=== PATIENT | male | born 1955 | race Caucasian/White ===

== ENCOUNTER 2019-02-24 07:54 | Outpatient (CLI) | payer MEDICARE, OTHER, SELFPAY ==
--- NOTE | 2019-02-24 08:06 | NM_ITS ---
WS: [id number] NUCLEAR MEDICINE HIDA SCAN WITH GALLBLADDER EJECTION FRACTION HISTORY: RUQ PAIN COMPARISON: 08/21/2015 and 02/17/2019 TECHNIQUE: The patient was intravenously injected with 8.1 mCi of TC99m Mebrofenin. Immediate imaging over the right upper quadrant was followed by 5 minute image and additional images for a total of 60 minutes. Normal uptake of radiotracer throughout the liver. Activity identified in the gallbladder at 10 minutes and well distended by 60 minutes. Activity in the proximal small bowel was seen by 60 minutes. Good washout of the radiotracer from the liver by 60 minutes. The patient then drank 8 ounces of Ensure Plus. Ejection fraction at 60 minutes was 90%. Normal GB ej ection fraction is 35-75%. Post fatty meal symptoms: None. NM/NM hepatobiliary w phar* [id number] IMPRESSION: 1. Normal HIDA scan. 2. Normal gallbladder ejection fraction.
== END 2019-02-24 07:55 | disposition home or self-care (01) ==
LOC: RAD 08:01
PROVIDERS: Family Provider Family Medicine; PCP Family Medicine; Visit Provider Family Medicine
DX: R10.11 Right upper quadrant pain (principal)
CPT/HCPCS: 78227; A9537

== ENCOUNTER → 2019-02-28 09:34 | Outpatient (BNVA) | payer MEDICARE, OTHER, SELFPAY | PROVIDERS: Family Provider Family Medicine; PCP Family Medicine; Visit Provider Internal Medicine Rheumatology | DX: L40.59 Other psoriatic arthropathy (principal); Z79.52 Long term (current) use of systemic steroids; I10 Essential (primary) hypertension; F17.220 Nicotine dependence, chewing tobacco, uncomplicated | CPT/HCPCS: 99214 ==

== ENCOUNTER → 2019-05-08 08:39 | Outpatient (BNVA) | payer MEDICARE, OTHER, SELFPAY | PROVIDERS: Family Provider Family Medicine; PCP Family Medicine; Visit Provider Family Medicine | DX: E78.5 Hyperlipidemia, unspecified (principal); E11.9 Type 2 diabetes mellitus without complications; I10 Essential (primary) hypertension; F51.04 Psychophysiologic insomnia | CPT/HCPCS: 80053; 80061; 82044; 83036; 83721; 85025 ==

== ENCOUNTER → 2020-02-07 08:23 | Outpatient (BNVA) | payer MEDICARE, OTHER, SELFPAY | PROVIDERS: Family Provider Family Medicine; PCP Family Medicine; Visit Provider Family Medicine | DX: I10 Essential (primary) hypertension (principal); R73.03 Prediabetes; E78.5 Hyperlipidemia, unspecified | CPT/HCPCS: 80053; 80061; 83036; 85025 ==

== ENCOUNTER 2020-04-26 23:56 | Inpatient (IN) | payer MEDICARE, OTHER, SELFPAY ==
[2020-04-27] VITALS (22 sets, daily range): BP systolic 94–140; BP diastolic 62–89; PULSE 62–107; RESP 12–24; TEMP 36.4–38.1; O2SAT 82–97; BMI 35.9; BMI 25.0
--- NOTE | 2020-04-27 00:40 | ECG_ITS ---
[facility] Test Date: 2020-04-27 Pat Name: Federico Menjivar Department: Room: Gender: Male Range Aide: : 1955 Requested By: Hugo Marcos Order Number: [id number] Reading MD: GREGORY NOLEN Measurements Intervals [place] Rate: 90 P: 39 [place]: 176 QRS: -60 QRSD: 102 T: 81 QT: 350 QTc: 429 Interpretive Statements SINUS RHYTHM LEFT ANTERIOR FASCICULAR BLOCK [QRS AXIS <= -45, QR IN I, RS IN II] SEPTAL MYOCARDIAL INFARCTION , PROBABLY OLD [40+ ms Q WAVE IN V1/V2] POSSIBLE LATERAL MYOCARDIAL INFARCTION , OF INDETERMINATE AGE [30 ms Q WAVE IN I/aVL/V5/V6] No previous ECG available for comparison Electronically Signed On 04-27-2020 18:45:59 GRAB HOOKER by GREGORY NOLEN [id number]
--- NOTE | 2020-04-27 00:46 | ED_ITS ---
HPI - COVID General: Chief Complaint: COVID symptoms Stated Complaint: covid symptoms Time Seen by Provider: 04/27/20 00:04 Triage information: Has fever, cough or shortness of breath . No known COVID + exposure last 14 days History of Present Illness: HPI Narrative: 64-year-old male with a history of diabetes, interstitial lung disease, and psoriatic arthritis. He presents with cough and fever since Wednesday. Fever log to 103 at home. It is 100.5 currently. He has been short of breath he says his sputum is white. He has a headache with his cough. He has some generalized aches as well. He is currently not using oxygen. MD complaint: has COVID symptoms Prior covid testing: no COVID 19 common symptoms: positive fever(s), chills, cough, productive cough, dyspnea, headache(s) and nasal congestion; negative throat pain, vomiting or diarrhea COVID 19 other sytmptoms: positive chest pressure and chest pain; negative requiring oxygen or requiring more oxygen Onset (ago): day(s) Severity: moderate Pertinent comorbid conditions: diabetes, COPD/respiratory disease and obesity Treatment prior to arrival: acetaminophen COVID Results: SARS-CoV-2 Antigen (Rapid) Positive (Negative) H 04/27/20 00:37 04/27/20 Review of Systems Const: Reports: fever(s) and chills Eyes: Denies: change in vision ENMT: Reports: nasal congestion; Denies: throat pain or odynophagia Card: Reports: chest pain and dyspnea on exertion; Denies: palpitations, irregular heart rhythm, swelling of feet/ankles or syncope Resp: Reports: dyspnea and productive cough GI: Denies: vomiting or diarrhea Neuro: Reports: headache(s); Denies: numbness in extremities or weakness in extremities PFSH ED PFSH: Medical History Chronic insomnia Dyslipidemia Essential hypertension Fibromyalgia GERD (gastroesophageal reflux disease) Idiopathic small fiber peripheral neuropathy Interstitial lung disease due to connective tissue disease Migraine headache Psoriasis Psoriatic arthritis TIA (transient ischemic attack) Type 2 diabetes mellitus, without long-term current use of insulin Surgical History History of surgery on arm Family History Other CAD (coronary artery disease) Hyperlipidemia Hypertension Lung disease Social History Smoking and tobacco status: smoker, details unknown smokeless tobacco Smokeless tobacco user: chewing tobacco Alcohol intake: never History of recent travel: No Physical Exam Const: GENERAL APPEARANCE: well developed and ill appearing ORIENTATION /CONSCIOUSNESS: Yes oriented to person, Yes oriented to place and Yes oriented to time HENMT: COMMON NORMALS: normocephalic, external ears normal and Normal external nose present HEAD & SCALP: normocephalic FACE & SINUS: normal facial exam NOSE: Normal external nose present and No nasal discharge present EXTERNAL EAR: Yes external ears normal Eye: COMMON NORMALS: Equal, round and reactive pupils present, EOMs intact bilaterally and conjunctivae normal EYELID: eyelids normal CONJUNCTIVA: Yes conjunctivae normal PUPIL: Yes Equal, round and reactive pupils present Neck/C-Spine: GENERAL: No tracheal deviation CERVICAL SPINE: Yes normal cervical lordosis and No Cervical spine tenderness Chest: COMMONS NORMALS: normal inspection of the chest CHEST: No tenderness Resp: COMMON NORMALS: negative for clear to auscultation bilaterally EFFORT & INSPECTION: Yes tachypneic, No respiratory distress, No retractions, Yes uses accessory muscles and No tracheal deviation AUSCULTATION: not clear to auscultation bilaterally, no rhonchi, wheezes and lung sounds not diminished Cardio: COMMON NORMALS: regular rhythm RATE: tachycardic RHYTHM: regular rhythm HEART SOUNDS: no murmurs PERIPHERAL PULSES: radial pulses present GI: INSPECTION: No abdominal distension AUSCULTATION: No Hyperactive bowel sounds present and No Hypoactive bowel sounds present PALPATION: No Guarding due to palpation present (GI) and No Rigid due to palpation PERCUSSION: no dullness to percussion and no tympanic to percussion Neuro: SENSORIUM/ORIENTATION: Yes oriented to person, Yes oriented to place and Yes oriented to time Psych: COMMON NORMALS: mental status grossly normal Skin: COMMON NORMALS: no rashes or lesions noted GENERAL SKIN EXAM: no rashes or lesions noted Course Vital Signs: Vital signs: Vital Signs Temperature 97.8 F 04/27/20 05:08 Pulse Rate 62 04/27/20 05:08 Respiratory Rate 18 04/27/20 05:08 Blood Pressure 118/75 04/27/20 05:08 Pulse Oximetry 93 04/27/20 06:25 MDM - COVID MDM Narrative: Medical decision making narrative: 64-year-old male with increasing shortness of breath at home. He has a history of interstitial lung disease. His oxygen saturations were in the mid to high 80s on room air despite tachypnea. He feels much better on 3 L of oxygen. He is hypoxic on blood gas. He is COVID-19 positive. Chest x-ray reveals some subtle opacities. CTA reveals pneumonitis with bilateral involvement consistent with COVID-19. With hypoxic respiratory failure, his history of lung disease, he will come into the hospitalist for treatment, especially as he is oxygen dependent at this point. Lab Data: Labs: Lab Results 04/27/20 04/27/20 04/27/20 Range/Units 00:37 00:59 00:59 WBC 6.0 (4.0-10.0) 10^3/ uL RBC 5.22 (4.1-5.3) 10^6/u L Hgb 15.6 (11.7-16.6) g/dL Hct 48.2 (42.0-52.0) % MCV 92.3 (80-94) fL MCH 29.9 (28.0-34.0) pg MCHC 32.4 (30.0-36.0) g/dL RDW 14.4 (12.1-15.1) % Plt Count 184 (130-400) 10^3/c mm MPV 10.6 H (7.4-10.4) fL Neut % (Auto) 76.3 % Lymph % (Auto) 13.6 % Sierra % (Auto) 8.8 % Eos % (Auto) 0.5 % Baso % (Auto) 0.3 % Neut # (Auto) 4.61 (1.8-7.7) 10^3/u L Lymph # (Auto) 0.8 (0.8-4.8) 10^3/u L Sierra # (Auto) 0.5 (0.2-0.9) 10^3/u L Eos # (Auto) 0.0 (0.0-0.8) 10^3/u L Baso # (Auto) 0.0 (0.0-0.1) 10^3/u L Nucleated RBC % (a uto) 0 % Nucleated RBCs # 0.0 /100WBC D-Dimer 0.85 H (0-0.59) ug/mIFE U Sodium (136-145) mmol/L Potassium (3.5-5.1) mmol/L Chloride (98-107) mmol/L Carbon Dioxide (22-29) mmol/L Anion Gap (5-19) BUN (8-23) mg/dL Creatinine (0.7-1.2) mg/dL GFR Calculation (90-130) mL/min Glucose (65-115) mg/dL Calculated Osmolal ity (285-295) mOsm/k g Lactate (0.5-2.2) mmol/L Calcium (8.5-10.5) mg/dL Total Bilirubin (0.15-1.2) mg/dL AST (0-40) U/L ALT (0-41) U/L Alkaline Phosphata se (40-130) IU/L Creatine Kinase (39-308) U/L Troponin T Baselin e (0-15) ng/L Troponin T 120 Min [place] (0-15) ng/L Delta Troponin T (0-10) ABS# C-Reactive Protein (0.0-4.9) mg/L NT-Pro-B Natriuret Pep (0-125) pg/mL Total Protein (6.6-8.7) g/dL Albumin (3.5-5.2) g/dL Globulin (1.3-4.6) g/dL Procalcitonin (0-0.5) ng/mL Urine Color (Yellow) Urine Appearance (CLEAR) Urine pH (5-7) Ur Specific Gravit y (1.005-1.030) Urine Protein (Negative) Urine Glucose (UA) (Normal) Urine Ketones (Negative) Urine Blood (Negative) Urine Nitrate (Negative) Urine Bilirubin (Negative) Urine Urobilinogen (Negative) mg/dL Ur Leukocyte Di ase (Negative) Urine RBC (0-2) /hpf Urine WBC (0-5) /hpf Ur Squamous Epith Cells (0-5) /hpf Amorphous Sediment Urine Bacteria (NONE) /hpf SARS-CoV-2 Ag (Rap id) Positive H (Negative) 04/27/20 04/27/20 04/27/20 Range/Units 00:59 00:59 00:59 WBC (4.0-10.0) 10^3/ uL RBC (4.1-5.3) 10^6/u L Hgb (11.7-16.6) g/dL Hct (42.0-52.0) % MCV (80-94) fL MCH (28.0-34.0) pg MCHC (30.0-36.0) g/dL RDW (12.1-15.1) % Plt Count (130-400) 10^3/c mm MPV (7.4-10.4) fL Neut % (Auto) % Lymph % (Auto) % Sierra % (Auto) % Eos % (Auto) % Baso % (Auto) % Neut # (Auto) (1.8-7.7) 10^3/u L Lymph # (Auto) (0.8-4.8) 10^3/u L Sierra # (Auto) (0.2-0.9) 10^3/u L Eos # (Auto) (0.0-0.8) 10^3/u L Baso # (Auto) (0.0-0.1) 10^3/u L Nucleated RBC % (a uto) % Nucleated RBCs # /100WBC D-Dimer (0-0.59) ug/mIFE U Sodium 136 (136-145) mmol/L Potassium 3.5 (3.5-5.1) mmol/L Chloride 102 (98-107) mmol/L Carbon Dioxide 20 L (22-29) mmol/L Anion Gap 17.5 (5-19) BUN 20 (8-23) mg/dL Creatinine 1.5 H (0.7-1.2) mg/dL GFR Calculation 47.0 L (90-130) mL/min Glucose 138 H (65-115) mg/dL Calculated Osmolal ity 287 (285-295) mOsm/k g Lactate 2.1 (0.5-2.2) mmol/L Calcium 8.6 (8.5-10.5) mg/dL Total Bilirubin 0.2 (0.15-1.2) mg/dL AST 34 (0-40) U/L ALT 40 (0-41) U/L Alkaline Phosphata se 80 (40-130) IU/L Creatine Kinase 381 H* (39-308) U/L Troponin T Baselin e 26 H (0-15) ng/L Troponin T 120 Min [place] (0-15) ng/L Delta Troponin T (0-10) ABS# C-Reactive Protein 42.0 H (0.0-4.9) mg/L NT-Pro-B Natriuret Pep 45 (0-125) pg/mL Total Protein 7.0 (6.6-8.7) g/dL Albumin 3.6 (3.5-5.2) g/dL Globulin 3.4 (1.3-4.6) g/dL Procalcitonin 0.09 (0-0.5) ng/mL Urine Color (Yellow) Urine Appearance (CLEAR) Urine pH (5-7) Ur Specific Gravit y (1.005-1.030) Urine Protein (Negative) Urine Glucose (UA) (Normal) Urine Ketones (Negative) Urine Blood (Negative) Urine Nitrate (Negative) Urine Bilirubin (Negative) Urine Urobilinogen (Negative) mg/dL Ur Leukocyte Di ase (Negative) Urine RBC (0-2) /hpf Urine WBC (0-5) /hpf Ur Squamous Epith Cells (0-5) /hpf Amorphous Sediment Urine Bacteria (NONE) /hpf SARS-CoV-2 Ag (Rap id) (Negative) 04/27/20 04/27/20 Range/Units 01:35 03:10 WBC (4.0-10.0) 10^3/ uL RBC (4.1-5.3) 10^6/u L Hgb (11.7-16.6) g/dL Hct (42.0-52.0) % MCV (80-94) fL MCH (28.0-34.0) pg MCHC (30.0-36.0) g/dL RDW (12.1-15.1) % Plt Count (130-400) 10^3/c mm MPV (7.4-10.4) fL Neut % (Auto) % Lymph % (Auto) % Sierra % (Auto) % Eos % (Auto) % Baso % (Auto) % Neut # (Auto) (1.8-7.7) 10^3/u L Lymph # (Auto) (0.8-4.8) 10^3/u L Sierra # (Auto) (0.2-0.9) 10^3/u L Eos # (Auto) (0.0-0.8) 10^3/u L Baso # (Auto) (0.0-0.1) 10^3/u L Nucleated RBC % (a uto) % Nucleated RBCs # /100WBC D-Dimer (0-0.59) ug/mIFE U Sodium (136-145) mmol/L Potassium (3.5-5.1) mmol/L Chloride (98-107) mmol/L Carbon Dioxide (22-29) mmol/L Anion Gap (5-19) BUN (8-23) mg/dL Creatinine (0.7-1.2) mg/dL GFR Calculation (90-130) mL/min Glucose (65-115) mg/dL Calculated Osmolal ity (285-295) mOsm/k g Lactate (0.5-2.2) mmol/L Calcium (8.5-10.5) mg/dL Total Bilirubin (0.15-1.2) mg/dL AST (0-40) U/L ALT (0-41) U/L Alkaline Phosphata se (40-130) IU/L Creatine Kinase (39-308) U/L Troponin T Baselin e (0-15) ng/L Troponin T 120 Min [place] 23.96 H (0-15) ng/L Delta Troponin T -2.04 L (0-10) ABS# C-Reactive Protein (0.0-4.9) mg/L NT-Pro-B Natriuret Pep (0-125) pg/mL Total Protein (6.6-8.7) g/dL Albumin (3.5-5.2) g/dL Globulin (1.3-4.6) g/dL Procalcitonin (0-0.5) ng/mL Urine Color Yellow (Yellow) Urine Appearance Clear (CLEAR) Urine pH 5 (5-7) Ur Specific Gravit y 1.020 (1.005-1.030) Urine Protein Neg (Negative) Urine Glucose (UA) Norm (Normal) Urine Ketones Negative (Negative) Urine Blood 2+ H (Negative) Urine Nitrate Negative (Negative) Urine Bilirubin Neg (Negative) Urine Urobilinogen 1 H (Negative) mg/dL Ur Leukocyte Di ase Negative (Negative) Urine RBC 5-10 H (0-2) /hpf Urine WBC 0-4 H (0-5) /hpf Ur Squamous Epith Cells 0-4 H (0-5) /hpf Amorphous Sediment Not Reportable Urine Bacteria Trace (NONE) /hpf SARS-CoV-2 Ag (Rap id) (Negative) COVID Results: SARS-CoV-2 Antigen (Rapid) Positive (Negative) H 04/27/20 00:37 04/27/20 Discharge Plan Discharge Patient Disposition: Admitted As Inpatient Admit Provider: Felice Javier Clinical Impression: Acute hypoxemic respiratory failure, Pneumonia due to 2019 novel coronavirus Condition: Stable Coding Level of Care Code ED Tableau Developer for Chg Fwd Exam Comprehensive
[2020-04-27] MEDS: dexamethasone 4 mg/mL INJ 8 MG IVP (01:29)
[2020-04-27] MEDS: ketorolac 30 mg/mL INJ IVP (01:30)
[2020-04-27 01:33] LABS: Basophils % 0.3 %; Eosinophils % 0.5 %; Hematocrit 48.2 % (42.0-52.0); Hemoglobin 15.6 g/dL (11.7-16.6); Lymphocytes # 0.8 10^3/uL (0.8-4.8); Lymphocytes % 13.6 %; Mean Corpuscular HGB Conc 32.4 g/dL (30.0-36.0); Mean Corpuscular Hemoglobin 29.9 pg (28.0-34.0); Mean Corpuscular Volume 92.3 fL (80-94); Mean Platelet Volume 10.6 fL (7.4-10.4); Monocytes # 0.5 10^3/uL (0.2-0.9); Monocytes % 8.8 %; Neutrophils # 4.61 10^3/uL (1.8-7.7); Neutrophils % 76.3 %; Nucleated Red Blood Cells % 0 %; Platelet Count 184 10^3/cmm (130-400); Red Blood Count 5.22 10^6/uL (4.1-5.3); Red Cell Distribution Width 14.4 % (12.1-15.1)
[2020-04-27 01:50] LABS: SARS Covid-2 Antigen Positive (Negative)
[2020-04-27 01:52] LABS: D Dimer 0.85 ug/mIFEU (0-0.59)
[2020-04-27 01:54] LABS: Lactate (Lactic Acid level) 2.1 mmol/L (0.5-2.2)
[2020-04-27 01:58] LABS: Troponin(5th) Baseline 26 ng/L (0-15)
[2020-04-27 02:04] LABS: NT Pro B Type Natriuretic Pept 45 pg/mL (0-125); Procalcitonin 0.09 ng/mL (0-0.5)
[2020-04-27] MEDS: albuterol 8 gm MDI 4 PUFF INHALATION (02:07)
[2020-04-27 02:15] LABS: Alanine Aminotransferase 40 U/L (0-41); Albumin Level 3.6 g/dL (3.5-5.2); Alkaline Phosphatase 80 IU/L (40-130); Aspartate Amino Transferase 34 U/L (0-40); Blood Urea Nitrogen 20 mg/dL (8-23); Calcium 8.6 mg/dL (8.5-10.5); Carbon Dioxide 20 mmol/L (22-29); Chloride 102 mmol/L (98-107); Globulin 3.4 g/dL (1.3-4.6); Glucose 138 mg/dL (65-115); Osmolality Calculated 287 mOsm/kg (285-295); Sodium 136 mmol/L (136-145); Total Bilirubin 0.2 mg/dL (0.15-1.2)
[2020-04-27 02:16] LABS: Anion Gap 17.5 (5-19); Potassium 3.5 mmol/L (3.5-5.1)
[2020-04-27 02:17] LABS: Creatine Phosphokinase 381 U/L (39-308)
[2020-04-27 02:28] LABS: Add Urine Microscopic? YES; Bilirubin Urine Neg (Negative); Blood Urine 2+ (Negative); Glucose Urine UA Norm (Normal); Ketones Urine Negative (Negative); Leukocyte Esterase Urine Negative (Negative); Nitrate Urine Negative (Negative); Protein Urine Neg (Negative); Urine Appearance Clear (CLEAR); Urine Color Yellow (Yellow); Urobilinogen Urine 1 mg/dL (Negative); pH Urine 5 (5-7)
--- NOTE | 2020-04-27 02:36 | CTR_ITS ---
PROCEDURE INFORMATION: Exam: CT Angiography Chest With Contrast Exam date and time: 04/27/2020 3:07 AM Age: 64 years old Clinical indication: Cough and shortness of breath; Patient HX: Cough with SOB. Covid +; Additional info: Chest pain TECHNIQUE: Imaging protocol: Computed tomographic angiography of the chest with contrast. 3D rendering (Not supervised by radiologist): MIP and/or 3D reconstructed images were created by the technologist. Radiation optimization: All CT scans at this facility use at least one of these dose optimization techniques: automated exposure control; mA and/or kV adjustment per patient size (includes targeted exams where dose is matched to clinical indication); or iterative reconstruction. Contrast material: VISI 320; Contrast volume: 80 ml; Contrast route: INTRAVENOUS (IV); COMPARISON: CR XR chest 1V portable [id number] 04/27/2020 12:11 AM RADIATION DOSE METRICS: Total DLP (mGy-cm): 952.56 FINDINGS: Pulmonary arteries: Normal. No pulmonary emboli. Aorta: Unremarkable. No aortic aneurysm. No aortic dissection. Lungs: There is a background of centrilobular emphysema. Some linear opacities are present in the posterior hemithoraces, findings that may represent atelectasis or parenchymal or pleural scarring. Subtle ground-glass opacities are seen in the right lobe adjacent to the major fissure and in the left perihilar region. A patchy interstitial pneumonitis cannot be excluded. Pleural spaces: Unremarkable. No pneumothorax. No pleural effusion. Heart: Calcifications are seen within the coronary arteries. Lymph nodes: Unremarkable. No enlarged lymph nodes. Liver: There is mild hypoattenuation of the hepatic parenchyma compatible with fatty infiltration. Gallbladder and bile ducts: There are multiple mildly prominent gallstones present. There are no inflammatory changes present to suggest cholecystitis however. Bones/joints: Unremarkable. No acute fracture. Soft tissues: Unremarkable. CT/CT angio chest PE protcl [id number] IMPRESSION: 1. There is no evidence for pulmonary emboli. 2. Linear opacity seen in the posterior hemithoraces likely represents atelectasis versus parenchymal pleural scarring. 3. There are some subtle ground-glass opacity seen in the right upper lobe adjacent to the major fissure and in the left perihilar region, findings that may represent atelectasis although a patchy interstitial pneumonitis cannot be excluded. Radiation Dose CTDIVOL = (mGy): DLP = 952.56 (mGy-cm)
--- NOTE | 2020-04-27 02:40 | ECG_ITS ---
[facility] Test Date: 2020-04-27 Pat Name: Federico Menjivar Department: Room: Gender: Male Ware Server: : 1955 Requested By: Hugo Marcos Order Number: [id number] Reading MD: GREGORY NOLEN Measurements Intervals [place] Rate: 71 P: 51 MI: 188 QRS: -55 QRSD: 111 T: 77 QT: 391 QTc: 427 Interpretive Statements SINUS RHYTHM LEFT ANTERIOR FASCICULAR BLOCK [QRS AXIS <= -45, QR IN I, RS IN II] SEPTAL MYOCARDIAL INFARCTION , OF INDETERMINATE AGE [40+ ms Q WAVE IN V1/V2] PROBABLE LATERAL MYOCARDIAL INFARCTION , OF INDETERMINATE AGE [35 ms Q WAVE IN I/aVL/V5/V6] Compared to ECG 04/27/2020 01:19:24 No significant changes Electronically Signed On 04-27-2020 18:47:39 SEAL SKINNER by GREGORY NOLEN [id number]
[2020-04-27 02:54] LABS: Add Urine Culture? No; Bacteria Urine TRACE /hpf; Squamous Epithelial Cell Urine 0-4 /hpf (0-5); WBC Urine 0-4 /hpf (0-5)
[2020-04-27] MEDS: iodixanol 320 mg/mL 100mL Btl IV (03:10)
--- NOTE | 2020-04-27 03:22 | XRR_ITS ---
PROCEDURE INFORMATION: Exam: XR Chest Exam date and time: 04/27/2020 12:31 AM Age: 64 years old Clinical indication: Shortness of breath; Additional info: SOB TECHNIQUE: Imaging protocol: XR of the chest Views: 1 view. COMPARISON: CR Chest 2 views* [id number] 09/24/2016 1:26 PM FINDINGS: Lungs: There is a background centrilobular emphysema and bronchiectasis. Increased interstitial markings are seen within the mid lower hemithoraces bilaterally likely representing background of pulmonary fibrosis as well although superimposed interstitial pneumonitis cannot be entirely excluded. Pleural spaces: Unremarkable. No pleural effusion. No pneumothorax. Heart/Mediastinum: Unremarkable. No cardiomegaly. Bones/joints: Unremarkable. XR/XR chest 1V portable [id number] IMPRESSION: 1. Probable background of centrilobular emphysema and bronchiectasis. 2. Subtle increased interstitial opacities are seen in the mid lower hemithoraces likely representing mild pulmonary fibrosis although superimposed interstitial pneumonitis cannot be entirely excluded.
[2020-04-27 04:00] LABS: Troponin 5 2HR 23.96 ng/L (0-15)
[2020-04-27 04:06] LABS: Troponin 5 2HR Delta -2.04 ABS# (0-10)
--- NOTE | 2020-04-27 04:57 | P.HP_ITS ---
Providers/Chief Complaint Admitting Physician: Felice Javier Primary Care Provider: Carolina Stevenson DO Chief Complaint: covid symptoms History of Present Illness Federico Menjivar is a 64 year old male with a history of psoriatic arthritis and interstitial lung disease presented to the emergency department with a complaint of fever, progressive shortness of breath and cough. Patient tested positive for COVID-19. He stated he took his Covid showed in the first week of March. CTA thorax done in the emergency department demonstrated bilateral patchy infiltrates. Patient is requiring 3 L of oxygen to maintain SaO2 above 90. He is admitted for further management of Covid pneumonia with acute respiratory failure. Review of Systems Narrative: Except as documented, all other systems reviewed and negative. Medications/Allergies Home Medications Medication Instructions Recorded Confirmed Last Taken Type lisinopril 5 mg tablet 5 mg PO DAILY #90 tab 08/10/19 03/25/20 Unknown Rx cyclobenzaprine 10 mg tablet 10 mg PO TID #90 tab 01/01/20 03/25/20 Unknown Rx ropinirole 1 mg tablet 1 mg PO DAILY #90 tab 01/11/20 03/25/20 Unknown Rx topiramate 25 mg tablet 25 mg PO .daily at bedtime #60 tab 01/11/20 03/25/20 Unknown Rx atorvastatin 40 mg tablet 40 mg PO .at bedtime #90 tab 03/25/20 03/25/20 Unknown Rx clonazepam 1 mg tablet 1 mg PO .po q hs #90 tab 03/25/20 03/25/20 Unknown Rx diclofenac sodium 75 mg 75 mg PO .once daily #90 tab 03/25/20 03/25/20 Unknown Rx tablet,delayed release prednisone 10 mg tablet 5 mg PO DAILY tab 03/25/20 03/25/20 Unknown History tofacitinib 11 mg tablet,extended 11 mg PO DAILY 03/25/20 03/25/20 Unknown History release 24 hr sitagliptin 50 mg tablet 50 mg PO DAILY #90 tab 04/01/20 Unknown Rx Allergies Allergy/AdvReac Type Severity Reaction Status Date / Time duloxetine [From Cymbalta] Allergy itching Verified 03/25/20 15:01 tramadol [From Ultracet] Allergy rash Verified 03/25/20 15:01 PFSH Acute PFSH: Medical History Chronic insomnia Dyslipidemia Essential hypertension Fibromyalgia GERD (gastroesophageal reflux disease) Idiopathic small fiber peripheral neuropathy Interstitial lung disease due to connective tissue disease Migraine headache Psoriasis Psoriatic arthritis TIA (transient ischemic attack) Type 2 diabetes mellitus, without long-term current use of insulin Surgical History History of surgery on arm Family History Other CAD (coronary artery disease) Hyperlipidemia Hypertension Lung disease Social History Smoking and tobacco status: smoker, details unknown smokeless tobacco Smokeless tobacco user: chewing tobacco Alcohol intake: never History of recent travel: No Vitals/I&O/Wt Last Vital Signs Temp 99.6 F 04/27/20 04:44 Pulse 72 04/27/20 04:44 Resp 17 04/27/20 04:44 BP 118/85 04/27/20 04:44 Pulse Ox 94 04/27/20 04:44 Weight last 48 hrs Weight 120.202 kg Physical Exam Const: COMMON NORMALS: no acute distress and patient oriented x3 NUTRITIONAL APPEARANCE: obese HENMT: COMMON NORMALS: normocephalic and moist oral mucous membranes Eye: COMMON NORMALS: Equal, round and reactive pupils present, EOMs intact bilaterally, conjunctivae normal and no scleral icterus Neck/C-Spine: COMMON NORMALS: full ROM, no lymphadenopathy, supple and no JVD Lymph: LYMPHATIC: no lymphadenopathy noted Chest: COMMONS NORMALS: normal inspection of the chest CHEST: Yes Symmetrical chest wall rise Resp: COMMON NORMALS: normal respiratory effort, No retractions, No use of accessory muscles and clear to auscultation bilaterally Cardio: COMMON NORMALS: no JVD, regular rate, regular rhythm, S1 normal heart sound present, S2 normal heart sound present and No murmurs present (Cardio) GI: COMMON NORMALS: Normal to inspection, nondistended, normoactive bowel sounds present, Soft to palpation, non-tender, No hepatosplenomegaly present and no bruits : COMMON NORMALS: Yes no CVA tenderness Back/Pelvis: COMMON NORMALS: no thoracic nor lumbar tenderness and thoraco- lumbar ROM normal Extremity: COMMON NORMALS: no clubbing, cyanosis or edema, no calf tenderness and no pedal edema Neuro: COMMON NORMALS: patient oriented x3, CN's II-XII intact bilaterally and no focal motor deficits Psych: COMMON NORMALS: mental status grossly normal, Normal thought process present, normal affect and speech normal Skin: COMMON NORMALS: no rashes or lesions noted and no jaundice Data : 04/27/20 00:59 04/27/20 00:59 Micro: Microbiology 04/27/20 00:59 Blood Culture - Preliminary Blood SPECIMEN COLLECTED 04/27/20 01:19 Blood Culture - Preliminary Blood SPECIMEN COLLECTED A&P Assessment and plan (1) Acute hypoxemic respiratory failure: Status: Acute (2) Pneumonia due to 2019 novel coronavirus: Status: Acute (3) Type 2 diabetes mellitus, without long-term current use of insulin: Status: Acute (4) Interstitial lung disease due to connective tissue disease: Status: Acute (5) Psoriatic arthritis: Status: Acute Additional A&P Information Admit patient to the medical floor. Start IV steroid, vitamin supplementation for Covid pneumonia Titrate oxygen. Monitor CBC and blood chemistry Lovenox for DVT prophylaxis. Insulin sliding scale for glucose management. Consult to mental health case manager to assist with home oxygen arrangement. Attestations Medical Necessity Statement*: Patient presenting with Covid pneumonia with hypoxia. He needs to be hospitalized for further treatment of Covid with IV steroid. He is expected to spend more than 2 midnights. Coding Level of Care Code Acute Air Carrier Maintenance Inspector for evert Fwd Exam Comprehensive Diagnoses Acute hypoxemic respiratory failure J96.01 Pneumonia due to 2019 novel coronavirus U07.1; J12.89 Type 2 diabetes mellitus, without long-term current use of insulin E11.9 Interstitial lung disease due to connective tissue disease M35.8; J84.89 Psoriatic arthritis L40.50
[2020-04-27] MEDS: enoxaparin 40 mg/0.4 mL Syringe SUBCUT (05:21)
[2020-04-27] MEDS: famotidine 20 mg/2 mL INJ IVP ×2 (05:34→17:27)
[2020-04-27] MEDS: dexamethasone 4 mg/mL INJ 6 MG IVP (05:34)
[2020-04-27 06:37] LABS: Glucose Point of Care 185 mg/dL (70-110)
[2020-04-27] MEDS: sitagliptin 100 mg Tablet 50 MG PO (08:19)
[2020-04-27] MEDS: ascorbic acid 500 mg Tablet 1000 MG PO ×2 (08:19→17:42)
[2020-04-27] MEDS: ropinirole 1 mg Tablet PO (08:20)
[2020-04-27] MEDS: albuterol 8 gm MDI 2 PUFF INHALATION ×2 (08:43→14:27)
[2020-04-27 09:09] LABS: Procalcitonin 0.08 ng/mL (0-0.5)
--- NOTE | 2020-04-27 09:39 | PC.PHAR ---
PT STATES HE TAKES CARE OF HIS OWN MEDICATIONS-PT STATES HE TAKES XELJANZ PT STATES HE TOOK HIS LAST TAB LAST NIGHT-PT STATES HE DCED HIS PLAVIX ABOUT 6 MONTHS AGO BECAUSE OF INTERACTIONS WITH OTHER MEDICATIONS-EXT MED HISTORY SHOWS LAST FILLED ON 11/14/19 90D/S
[2020-04-27 11:06] LABS: Glucose Point of Care 211 mg/dL (70-110)
--- NOTE | 2020-04-27 13:19 | PM.PN ---
Subjective Subjective: Interval history: States he cannot really tell if he is feeling any different today. Phlegm probably about the same as yesterday. Denies chest pain. No nausea vomiting or diarrhea. Vitals/I&O/Wt Last Vital Signs Temp 98.4 F 04/27/20 11:46 Pulse 77 04/27/20 11:46 Resp 18 04/27/20 11:46 BP 111/89 04/27/20 11:46 Pulse Ox 96 04/27/20 08:50 Weight last 48 hrs Weight 83.915 kg Weight 120.202 kg Physical Exam Const: COMMON NORMALS: no acute distress and patient oriented x3 NUTRITIONAL APPEARANCE: obese OTHER: Cushingoid appearance HENMT: COMMON NORMALS: oropharynx normal Neck/C-Spine: COMMON NORMALS: no JVD Resp: COMMON NORMALS: normal respiratory effort AUSCULTATION: diminished lung sounds Cardio: COMMON NORMALS: no JVD, regular rhythm, S1 normal heart sound present, S2 normal heart sound present and No murmurs present (Cardio) RHYTHM: regular rhythm HEART SOUNDS: S1 normal heart sound present and S2 normal heart sound present GI: COMMON NORMALS: Normal to inspection, nondistended, normoactive bowel sounds present, Soft to palpation and non-tender PALPATION: Yes Soft to palpation Extremity: COMMON NORMALS: no joint enlargement and no pedal edema Neuro: COMMON NORMALS: patient oriented x3 and moves all extremities Skin: COMMON NORMALS: no rashes or lesions noted GENERAL SKIN EXAM: no rashes or lesions noted Data : 04/27/20 00:59 04/27/20 00:59 Micro: Microbiology 04/27/20 00:59 Blood Culture - Preliminary Blood SPECIMEN COLLECTED 04/27/20 01:19 Blood Culture - Preliminary Blood SPECIMEN COLLECTED A&P Assessment and plan (1) Acute hypoxemic respiratory failure: Severe COVID-19 pneumonia. Hypoxia, requiring 3 L of oxygen. Prior to this not on supplemental oxygen. Discussed his condition with him. We discussed risks and benefits of addition of remdesivir. He is agreeable. Requested with pharmacy. Continue Decadron. Continue oxygen support. Lovenox VT prophylaxis. Monitor D-dimer level. CRP. Other supportive care, vitamins. Status: Acute (2) Pneumonia due to 2019 novel coronavirus: Status: Acute (3) Type 2 diabetes mellitus, without long-term current use of insulin: Status: Acute (4) Interstitial lung disease due to connective tissue disease: Status: Acute (5) Psoriatic arthritis: Status: Acute Additional A&P Information Diabetes: SSI Attestations Medical Necessity Statement*: Continue admission for assessment management of severe COVID-19 pneumonia, hypoxic respiratory failure with underlying interstitial lung disease, autoimmune disorder. Coding Level of Care Code Acute Senior Php Web Developer for [facility] Fwd Diagnoses Acute hypoxemic respiratory failure J96.01 Pneumonia due to 2019 novel coronavirus U07.1; J12.89 Type 2 diabetes mellitus, without long-term current use of insulin E11.9 Interstitial lung disease due to connective tissue disease M35.8; J84.89 Psoriatic arthritis L40.50
[2020-04-27] MEDS: remdesivir 200 MG in sodium chloride 0.9% (100 ml) 100 ML 100 MG IV (13:51)
[2020-04-27 17:35] LABS: Glucose Point of Care 187 mg/dL (70-110)
[2020-04-27 21:13] LABS: Glucose Point of Care 177 mg/dL (70-110)
[2020-04-27] MEDS: CLONazepam 1 mg Tablet PO (21:25)
[2020-04-28] VITALS (7 sets, daily range): BP systolic 103–133; BP diastolic 59–85; PULSE 60–79; RESP 16–19; TEMP 35.9–37.1; O2SAT 91–94
[2020-04-28] MEDS: enoxaparin 40 mg/0.4 mL Syringe SUBCUT (04:25)
[2020-04-28] MEDS: dexamethasone 4 mg/mL INJ 6 MG IVP (04:54)
[2020-04-28] MEDS: famotidine 20 mg/2 mL INJ IVP ×2 (04:55→17:11)
[2020-04-28 06:44] LABS: Glucose Point of Care 153 mg/dL (70-110)
[2020-04-28 06:58] LABS: Basophils % 0.2 %; Hematocrit 46.4 % (42.0-52.0); Hemoglobin 15.2 g/dL (11.7-16.6); Lymphocytes # 0.6 10^3/uL (0.8-4.8); Lymphocytes % 4.9 %; Mean Corpuscular HGB Conc 32.8 g/dL (30.0-36.0); Mean Corpuscular Hemoglobin 29.8 pg (28.0-34.0); Mean Platelet Volume 10.6 fL (7.4-10.4); Monocytes # 0.7 10^3/uL (0.2-0.9); Monocytes % 5.1 %; Neutrophils # 11.55 10^3/uL (1.8-7.7); Neutrophils % 89.3 %; Nucleated Red Blood Cells % 0 %; Platelet Count 204 10^3/cmm (130-400); Red Cell Distribution Width 14.4 % (12.1-15.1); White Blood Count 12.9 10^3/uL (4.0-10.0)
[2020-04-28 07:12] LABS: D Dimer 0.43 ug/mIFEU (0-0.59)
[2020-04-28 07:15] LABS: Alanine Aminotransferase 33 U/L (0-41); Albumin Level 3.5 g/dL (3.5-5.2); Alkaline Phosphatase 73 IU/L (40-130); Anion Gap 14.5 (5-19); Aspartate Amino Transferase 26 U/L (0-40); Blood Urea Nitrogen 23 mg/dL (8-23); C Reactive Protein 32.2 mg/L (0.0-4.9); Calcium 8.8 mg/dL (8.5-10.5); Carbon Dioxide 22 mmol/L (22-29); Chloride 105 mmol/L (98-107); Globulin 3.1 g/dL (1.3-4.6); Glucose 144 mg/dL (65-115); Magnesium 1.8 mg/dL (1.7-2.3); Osmolality Calculated 290 mOsm/kg (285-295); Phosphorus 2.7 mg/dL (2.5-4.5); Potassium 4.5 mmol/L (3.5-5.1); Sodium 137 mmol/L (136-145); Total Bilirubin 0.2 mg/dL (0.15-1.2); Total Protein 6.6 g/dL (6.6-8.7)
[2020-04-28] MEDS: albuterol 8 gm MDI 2 PUFF INHALATION (09:06)
[2020-04-28] MEDS: sitagliptin 100 mg Tablet 50 MG PO (09:07)
[2020-04-28] MEDS: cholecalciferol (vitamin D3) 1,000 unit Tablet 4000 UNIT PO (09:07)
[2020-04-28] MEDS: ropinirole 1 mg Tablet PO (09:07)
[2020-04-28] MEDS: ascorbic acid 500 mg Tablet 1000 MG PO ×2 (09:07→17:11)
[2020-04-28 11:22] LABS: Glucose Point of Care 192 mg/dL (70-110)
[2020-04-28 16:15] LABS: Glucose Point of Care 153 mg/dL (70-110)
[2020-04-28] MEDS: remdesivir 100 MG in sodium chloride 0.9% (100 ml) 100 ML IV (17:13)
[2020-04-28] MEDS: CLONazepam 1 mg Tablet PO (20:28)
--- NOTE | 2020-04-28 20:39 | P.PN_ITS ---
Subjective Subjective: Interval history: Today he is feeling better. He has been weaning down on oxygen requirement. Denies chest pain or pressure. Has been getting up a little bit more. No nausea vomiting or diarrhea. Has been working very well with I-S and flutter valve. Vitals/I&O/Wt Last Vital Signs Temp 96.9 F L 04/28/20 14:57 Pulse 79 04/28/20 14:57 Resp 17 04/28/20 14:57 BP 126/81 04/28/20 14:57 Pulse Ox 93 04/28/20 14:57 04/28/20 04/28/20 04/28/20 06:59 14:59 22:59 Intake Total 980 / 1080 720 / 720 220 / 940 Output Total 250 / 550 325 / 325 350 / 675 Balance 730 / 530 395 / 395 -130 / 265 Weight last 48 hrs Weight 124.012 kg Weight 83.915 kg Weight 120.202 kg Physical Exam Const: COMMON NORMALS: no acute distress and patient oriented x3 NUTRITIONAL APPEARANCE: obese OTHER: Cushingoid appearance HENMT: COMMON NORMALS: oropharynx normal Neck/C-Spine: COMMON NORMALS: no JVD Resp: COMMON NORMALS: normal respiratory effort AUSCULTATION: diminished lung sounds (Improving) Cardio: COMMON NORMALS: no JVD, regular rhythm, S1 normal heart sound present, S2 normal heart sound present and No murmurs present (Cardio) RHYTHM: regular rhythm HEART SOUNDS: S1 normal heart sound present and S2 normal heart sound present GI: COMMON NORMALS: Normal to inspection, nondistended, normoactive bowel sounds present, Soft to palpation and non-tender PALPATION: Yes Soft to palpation Extremity: COMMON NORMALS: no joint enlargement and no pedal edema Neuro: COMMON NORMALS: patient oriented x3 and moves all extremities Skin: COMMON NORMALS: no rashes or lesions noted GENERAL SKIN EXAM: no rashes or lesions noted Data : 04/28/20 06:40 04/28/20 06:40 Micro: Microbiology 04/27/20 01:19 Blood Culture - Preliminary Blood NEGATIVE TO DATE 04/27/20 00:59 Blood Culture - Preliminary Blood NEGATIVE TO DATE A&P Assessment and plan (1) Acute hypoxemic respiratory failure: Improving hypoxic respiratory failure, weaning down to 1 L oxygen, and even room air, feeling better. Mobilizing. If continues to do so well, may be able to return home. He does not feel co mfortable going home yet today. Continue steroid, remdesivir until discharge. Lovenox prophylaxis while in the hospital. Follow-up D-dimer, CRP. Home O2 eval prior to discharge. We had a quite a long discussion today regarding the course of illness, red flags to watch out for. It also appears that he had had his COVID-19 vaccine, but it appears perhaps he had contracted Covid before he had time to develop immunity. Same with his . Although appears she may have contracted it was somewhat later on him. This may also help explain the rapid improvement. Status: Acute (2) Pneumonia due to 2019 novel coronavirus: Status: Acute (3) Type 2 diabetes mellitus, without long-term current use of insulin: Status: Acute (4) Interstitial lung disease due to connective tissue disease: Status: Acute (5) Psoriatic arthritis: Status: Acute Additional A&P Information Diabetes: SSI Attestations Medical Necessity Statement*: Continue admission for assessment of management of improving hypoxic respiratory failure, severe COVID-19 pneumonia in a gentleman with underlying interstitial lung disease, psoriatic arthritis, risk of more severe illness, complications due to immunocompromise and comorbidities, disposition planning. Coding Level of Care Code Acute [facility] Diagn[facility] Acute hypoxemic respiratory failure J96.01 Pneumonia due to 2019 novel coronavirus U07.1; J12.89 Type 2 diabetes mellitus, without long-term current use of insulin E11.9 Interstitial lung disease due to connective tissue disease M35.8; J84.89 Psoriatic arthritis L40.50
[2020-04-28 20:50] LABS: Glucose Point of Care 132 mg/dL (70-110)
[2020-04-29] VITALS (10 sets, daily range): BP systolic 95–136; BP diastolic 60–84; PULSE 56–80; RESP 16–18; TEMP 36.6–37.2; O2SAT 87–95
[2020-04-29] MEDS: enoxaparin 40 mg/0.4 mL Syringe SUBCUT (05:12)
[2020-04-29] MEDS: dexamethasone 4 mg/mL INJ 6 MG IVP (05:12)
[2020-04-29] MEDS: famotidine 20 mg/2 mL INJ IVP (05:12)
[2020-04-29 05:39] LABS: Basophils % 0.1 %; Hematocrit 47.3 % (42.0-52.0); Hemoglobin 15.4 g/dL (11.7-16.6); Lymphocytes # 0.9 10^3/uL (0.8-4.8); Lymphocytes % 6.7 %; Mean Corpuscular HGB Conc 32.6 g/dL (30.0-36.0); Mean Corpuscular Hemoglobin 29.8 pg (28.0-34.0); Mean Corpuscular Volume 91.7 fL (80-94); Mean Platelet Volume 10.4 fL (7.4-10.4); Monocytes # 0.8 10^3/uL (0.2-0.9); Monocytes % 5.4 %; Neutrophils # 12.06 10^3/uL (1.8-7.7); Neutrophils % 87.1 %; Nucleated Red Blood Cells % 0 %; Platelet Count 188 10^3/cmm (130-400); Red Blood Count 5.16 10^6/uL (4.1-5.3); Red Cell Distribution Width 14.6 % (12.1-15.1); White Blood Count 13.8 10^3/uL (4.0-10.0)
[2020-04-29 05:59] LABS: D Dimer 0.62 ug/mIFEU (0-0.59)
[2020-04-29 06:00] LABS: Alanine Aminotransferase 34 U/L (0-41); Albumin Level 3.3 g/dL (3.5-5.2); Alkaline Phosphatase 72 IU/L (40-130); Anion Gap 12.1 (5-19); Aspartate Amino Transferase 31 U/L (0-40); Blood Urea Nitrogen 27 mg/dL (8-23); C Reactive Protein 11.3 mg/L (0.0-4.9); Calcium 8.8 mg/dL (8.5-10.5); Carbon Dioxide 24 mmol/L (22-29); Chloride 105 mmol/L (98-107); Globulin 3.3 g/dL (1.3-4.6); Glucose 122 mg/dL (65-115); Osmolality Calculated 290 mOsm/kg (285-295); Potassium 4.1 mmol/L (3.5-5.1); Sodium 137 mmol/L (136-145); Total Bilirubin 0.2 mg/dL (0.15-1.2); Total Protein 6.6 g/dL (6.6-8.7)
[2020-04-29 06:49] LABS: Glucose Point of Care 127 mg/dL (70-110)
[2020-04-29] MEDS: cholecalciferol (vitamin D3) 1,000 unit Tablet 4000 UNIT PO (08:45)
[2020-04-29] MEDS: ascorbic acid 500 mg Tablet 1000 MG PO (08:45)
[2020-04-29] MEDS: ropinirole 1 mg Tablet PO (08:46)
[2020-04-29] MEDS: sitagliptin 100 mg Tablet 50 MG PO (08:46)
[2020-04-29 11:18] LABS: Glucose Point of Care 189 mg/dL (70-110)
--- NOTE | 2020-04-29 12:36 | PM.DCS ---
Discharge Providers Date of Admission: 04/27/20 04:07 Date of Discharge: April 29, 2020 Attending Provider at Admission: Felice Javier Attending Provider at Discharge: Jesus Lino MD Primary Care Provider: Carolina Stevenson DO Diagnoses at Discharge Discharge Diagnosis (1) Acute hypoxemic respiratory failure: Status: Acute (2) Pneumonia due to 2019 novel coronavirus: Status: Acute (3) Type 2 diabetes mellitus, without long-term current use of insulin: Status: Acute (4) Interstitial lung disease due to connective tissue disease: Status: Acute (5) Psoriatic arthritis: Status: Acute Reason for Visit Reason for Visit: covid symptoms Hospital Course Hospital Course 64-year gentleman with psoriatic arthritis interstitial lung disease who recently received COVID-19 vaccination in the beginning of March however, appears to have somewhat still contracted COVID-19, was admitted due to severe COVID-19 with hypoxia. He was started on remdesivir and Decadron which seemed to help him clinically. He was finally weaned down on his oxygen to room air at rest and was requiring 2 L on ambulation. He was still complaining of cough which is dry along fatigue. His is also sick with COVID-19 pneumonia. At the time of discharge he will be requiring 2 L of oxygen, he will go home with steroid regimen. He received vitamin C, vitamin D, zinc, remdesivir along with the steroid during hospitalization. Chest x-ray revealed atelectasis without any consolidation no antibiotics were administered during hospitalization. Physical Exam Narrative: EXAM NARRATIVE: Obese male Was saturating well on room air Has had been experiencing bouts of dry cough S1, S2 No acute respiratory distress Distended abdomen nontender Lower extremity no edema gangrene ulcer No neurological deficit Patient was able to walk in his room without any active discomfort EOMI, PERRLA Discharge Data Data Completed and Pending: Completed Studies During Hospitalization Category Date Time Status CT angio chest PE protcl [id number] Urge nt Cat Scan 04/27/20 02:36 Completed XR chest 1V kole ble 26093 Stat Exams 04/27/20 03:22 Completed Pending at discharge Category Date Time Status Blood Culture Sta t Lab 04/27/20 00:59 Results Complete Blood Co unt w/Auto AM LABS Lab 04/30/20 04:00 Ordered Complete Blood Co unt w/Auto AM LABS Lab 05/01/20 04:00 Ordered Comprehensive Met abolic Panel AM [facility] Lab 04/30/20 04:00 Ordered Labs from last 24 hours 04/29/20 04/29/20 04/29/20 11:08 06:46 05:30 WBC RBC Hgb Hct MCV MCH MCHC RDW Plt Count MPV Neut % (Auto) Lymph % (Auto) [place] % (Auto) Eos % (Auto) Baso % (Auto) Neut # (Auto) Lymph # (Auto) [place] # (Auto) Eos # (Auto) Baso # (Auto) Nucleated RBC % (a uto) Nucleated RBCs # D-Dimer 0.62 H Sodium Potassium Chloride Carbon Dioxide Anion Gap BUN Creatinine GFR Calculation Glucose POC Glucose 189 H 127 H Calculated Osmolal ity Calcium Total Bilirubin AST ALT Alkaline Phosphata se C-Reactive Protein Total Protein Albumin Globulin 04/29/20 04/29/20 04/28/20 05:30 05:30 20:39 WBC 13.8 H RBC 5.16 Hgb 15.4 Hct 47.3 MCV 91.7 MCH 29.8 MCHC 32.6 RDW 14.6 Plt Count 188 MPV 10.4 Neut % (Auto) 87.1 Lymph % (Auto) 6.7 [place] % (Auto) 5.4 Eos % (Auto) 0.0 Baso % (Auto) 0.1 Neut # (Auto) 12.06 H Lymph # (Auto) 0.9 [place] # (Auto) 0.8 Eos # (Auto) 0.0 Baso # (Auto) 0.0 Nucleated RBC % (a uto) 0 Nucleated RBCs # 0.0 D-Dimer Sodium 137 Potassium 4.1 Chloride 105 Carbon Dioxide 24 Anion Gap 12.1 BUN 27 H Creatinine 1.0 GFR Calculation 75.0 L Glucose 122 H POC Glucose 132 H Calculated Osmolal ity 290 Calcium 8.8 Total Bilirubin 0.2 AST 31 ALT 34 Alkaline Phosphata se 72 C-Reactive Protein 11.3 H Total Protein 6.6 Albumin 3.3 L Globulin 3.3 04/28/20 16:12 WBC RBC Hgb Hct MCV MCH MCHC RDW Plt Count MPV Neut % (Auto) Lymph % (Auto) [place] % (Auto) Eos % (Auto) Baso % (Auto) Neut # (Auto) Lymph # (Auto) [place] # (Auto) Eos # (Auto) Baso # (Auto) Nucleated RBC % (a uto) Nucleated RBCs # D-Dimer Sodium Potassium Chloride Carbon Dioxide Anion Gap BUN Creatinine GFR Calculation Glucose POC Glucose 153 H Calculated Osmolal ity Calcium Total Bilirubin AST ALT Alkaline Phosphata se C-Reactive Protein Total Protein Albumin Globulin Vitals: Last Vital Signs Temp 98.7 F 04/29/20 11:09 Pulse 75 04/29/20 11:09 Resp 18 04/29/20 11:09 BP 136/84 04/29/20 11:09 Pulse Ox 92 04/29/20 11:09 Discharge Plan Discharge Patient Disposition: Home Condition: Stable Prescriptions: New Januvia 100 mg Tablet 50 mg PO DAILY 30 Days Qty: 30 RF: 0 albuterol sulfate [Ventolin HFA] 90 mcg/actuation Hfa Aerosol Inhaler 2 puff inhalation Q4H.RESPIRATORY PRN (Reason: Shortness Of Breath) 60 Days Qty: 2 RF: 0 Continued prednisone 2.5 mg tablet 5 mg PO DAILY@21 30 Days Qty: 30 RF: 1 No Action Xeljanz XR 11 mg tablet extended release 24 hr 11 mg PO DAILY RF: 0 Januvia 50 mg tablet 50 mg PO DAILY Qty: 90 RF: 0 cyclobenzaprine 10 mg tablet 10 mg PO TID PRN (Reason: Muscle Spasm) RF: 0 atorvastatin 40 mg tablet 40 mg PO DAILY@21 RF: 0 ropinirole 1 mg tablet 1 mg PO DAILY@21 RF: 0 nitroglycerin 0.3 mg tablet, sublingual See Rx Instructions .ROUTE .COMPLEX RF: 0 clonazepam 1 mg tablet 1 mg PO DAILY@21 RF: 0 topiramate 25 mg tablet 25 mg PO DAILY@21 RF: 0 diclofenac sodium 75 mg tablet,delayed release (DR/EC) 75 mg PO DAILY@21 RF: 0 lisinopril 5 mg tablet 5 mg PO DAILY@21 RF: 0 Vitamin C 1 tab PO DAILY@21 RF: 0 Vitamin D3 1 cap PO DAILY@21 RF: 0 zinc 1 cap PO DAILY@21 RF: 0 Discharge Orders: Discharge Order (Routine); Ordered 04/29/20 Ordered By: Jesus Lino Other Ambulatory Orders: DME: Oxygen (Order) Location: None Selected Ordered By: Jesus Lino Referrals: Carolina Stevenson DO [Primary Care Provider] - Discharge Diet: Advance as tolerated Discharge Activity: Resume usual activity Patient Instructions: Viral Pneumonia (DC), Hypoxia (GEN) Activity Restrictions/Additional Instructions: You can continue prednisone which you are taking for psoriasis arthritis, currently monitor your blood sugar if it is going high you might need sliding scale, see your primary care physician blood sugars consistently above 200s after meals, you can continue your lisinopril and other multivitamins. Discharge Attestations Time Spent in Discharge Care*: less than 30 min Quality Metrics Clinical Quality Measures During this hospital stay, did patient experience: None Coding Level of Care Code Acute Child Care Attendant for [facility] Fwd Diagnoses Acute hypoxemic respiratory failure J96.01 Pneumonia due to 2019 novel coronavirus U07.1; J12.89 Type 2 diabetes mellitus, without long-term current use of insulin E11.9 Interstitial lung disease due to connective tissue disease M35.8; J84.89 Psoriatic arthritis L40.50
[2020-04-29] MEDS: albuterol 8 gm MDI 2 PUFF INHALATION (13:27)
--- NOTE | 2020-04-29 13:54 | PC.NURSE ---
Discharge meds sent to [facility]. Miniature Train [employer] called and spoke with Cadence in Pharmacy and she said she has scripts and is working on it and will bring them to patient's room.
--- NOTE | 2020-04-29 15:28 | PC.NURSE ---
patient verbalizes understanding of discharge instructions, home medications, and follow up appointments. currently waiting for home oxygen to be delivered, then patient is ready for discharge.
--- NOTE | 2020-04-29 16:20 | PC.NURSE ---
patient taken to private vehicle via wheelchair by staff. Patient's oxygen from [facility] given to patient.
--- NOTE | 2020-04-29 19:29 | PC.RESP ---
Pulmonary Rehab information sent to patient.
== END 2020-04-29 16:21 | disposition home or self-care (01) | DRG 177 ==
LOC: ER 04-27 04:07 → MEDSURG 04-27 04:23
PROVIDERS: Internal Medicine; Admitting Provider Internal Medicine; Emergency Provider Emergency Medicine; PCP Family Medicine; Visit Provider Internal Medicine
DX: U07.1 COVID-19 (principal); J12.82 Pneumonia due to coronavirus disease 2019; J96.01 Acute respiratory failure with hypoxia; J84.9 Interstitial pulmonary disease, unspecified; L40.50 Arthropathic psoriasis, unspecified; F51.04 Psychophysiologic insomnia; E78.5 Hyperlipidemia, unspecified; I10 Essential (primary) hypertension; M79.7 Fibromyalgia; K21.9 Gastro-esophageal reflux disease without esophagitis; E11.42 Type 2 diabetes mellitus with diabetic polyneuropathy; Z86.73 Personal history of transient ischemic attack (TIA), and cerebral infarction without residual deficits; Z79.84 Long term (current) use of oral hypoglycemic drugs; F17.220 Nicotine dependence, chewing tobacco, uncomplicated
CPT/HCPCS: 36415; 36416; 71045; 71275; 80053; 81001; 82550; 82962; 83605; 83735; 83880; 84100; 84145; 84484; 85025; 85378; 86140; 87040; 87426; 93005; 94640; 94664; 94760; 96372; 96374; 96375; 99285; J1100; J1650; J1815; J1885; J3490; J3535; Q9967

== ENCOUNTER → 2020-05-13 11:56 | Outpatient (BNVA) | payer MEDICARE, OTHER, SELFPAY | PROVIDERS: PCP Family Medicine; Visit Provider Family Medicine | DX: N40.0 Benign prostatic hyperplasia without lower urinary tract symptoms (principal) | CPT/HCPCS: 84153 ==

== ENCOUNTER → 2020-08-12 10:27 | Outpatient (BNVA) | payer MEDICARE, OTHER, SELFPAY | PROVIDERS: PCP Family Medicine; Visit Provider Family Medicine | DX: I10 Essential (primary) hypertension (principal); E11.9 Type 2 diabetes mellitus without complications; E78.5 Hyperlipidemia, unspecified; J43.1 Panlobular emphysema; Z68.36 Body mass index [BMI] 36.0-36.9, adult; F17.229 Nicotine dependence, chewing tobacco, with unspecified nicotine-induced disorders | CPT/HCPCS: 80053; 80061; 82043; 83036; 85025 ==

== ENCOUNTER → 2021-03-07 12:08 | Outpatient (BNVA) | payer MEDICARE, OTHER, SELFPAY | PROVIDERS: PCP Family Medicine; Visit Provider Family Medicine | DX: E11.9 Type 2 diabetes mellitus without complications (principal); K80.20 Calculus of gallbladder without cholecystitis without obstruction | CPT/HCPCS: 80053; 83036 ==

== ENCOUNTER → 2021-03-24 10:50 | Outpatient (BNVA) | payer MEDICARE, OTHER, SELFPAY | PROVIDERS: PCP Family Medicine; Visit Provider Surgery | DX: Z11.52 Encounter for screening for COVID-19 (principal) | CPT/HCPCS: 87635 ==

== ENCOUNTER 2021-05-21 07:53 | Outpatient (CLI) | payer MEDICARE, OTHER, SELFPAY ==
[2021-05-21] MEDS: iohexol 300 mg/mL 50 mL Btl PO (08:19)
--- NOTE | 2021-05-21 10:00 | CT_ITS ---
WS: [id number] CT ABDOMEN AND PELVIS WITH CONTRAST HISTORY: R10.9 - Unspecified abdominal pain, right-sided flank pain. TECHNIQUE: Imaging performed of the abdomen and pelvis with IV contrast. Single phase imaging of the abdomen. Coronal and sagittal reformats are submitted. All CT scans at [facility] use at [address] one of these dose optimization techniques: automated exposure control; mA and/or kV adjustment per patient size (includes targeted exams where dose is matched to clinical indication); or iterative re construction. IV CONTRAST: Omnipaque 300; 95 mL IV. Oral contrast: Yes. DLP: 1317.73 mGy.cm COMPARISON: 04/15/2015 Lower thorax: Lung bases are clear. Heart is normal size. No hiatal hernia. Liver/biliary system: Normal size with no intrahepatic dilatation. Normally enhancing portal vein. Gallbladder: Well distended gallbladder with numerous stones within the lumen. No pericholecystic flu id. No bile duct dilatation. Pancreas: Normal size pancreas and pancreatic duct. No adjacent inflammation. Spleen: Normal size spleen with several granulomata. Adrenal glands: Normal. Right kidney: Cortical cyst upper pole measures 12 mm. No solid mass. Nonobstructing calcifications. Left kidney: Large renal cyst from the lower pole extends medially. Cyst measures 6.7 x 8.7 cm. There are additional numerous calcifications which are nonobstructing in the renal pelvis. There are addit ional too small to characterize hypodensities within the renal cortex. No solid mass. Aorta: Mild atherosclerosis with no aneurysm. Lymphadenopathy: None. Free fluid: None. GI tract: Normally distended stomach. No small bowel obstruction. The appendix is normal. There are s everal diverticula in the descending and sigmoid colon. No obstruction or inflammation. Abdominal wall: Unremarkable abdominal wall. No hernia. Pelvis: Well-distended urinary bladder. Mildly heterogeneous enlarged prostate gland. There is mild e ncroachment into the posterior bladder. No free fluid or adenopathy. Inguinal canals are patent bilat erally containing fat only. Bones: Unremarkable. CT/CT abdomen pelvis w con* [id number] IMPRESSION: 1. No acute abdominal or pelvic abnormalities are identified. 2. Cholelithiasis. Numerous stones within the gallbladder but no acute cholecy stitis or bile duct dilatation. 3. Bilateral nonobstructing renal calculi and cysts. Largest cyst within the L EFT kidney measures 6.7 x 8.7 cm. 4. Normal appendix. 5. Mild distal colonic diverticulosis.
== END 2021-05-21 07:54 | disposition home or self-care (01) ==
LOC: RAD 07:57
PROVIDERS: PCP Family Medicine; Visit Provider Surgery
DX: K92.1 Melena (principal); K80.20 Calculus of gallbladder without cholecystitis without obstruction; N20.0 Calculus of kidney; K57.90 Diverticulosis of intestine, part unspecified, without perforation or abscess without bleeding; N28.1 Cyst of kidney, acquired
CPT/HCPCS: 74177

== ENCOUNTER → 2021-06-03 09:31 | Outpatient (BNVA) | payer MEDICARE, OTHER, SELFPAY | PROVIDERS: PCP Family Medicine; Visit Provider Surgery | DX: K80.20 Calculus of gallbladder without cholecystitis without obstruction (principal); R10.9 Unspecified abdominal pain | CPT/HCPCS: 99214 ==

== ENCOUNTER 2021-09-04 07:56 | Outpatient (CLI) | payer MEDICARE, OTHER, SELFPAY | END 2021-09-04 07:57 | disposition home or self-care (01) | LOC: RAD 07:59 | PROVIDERS: PCP Internal Medicine; Visit Provider Urology | DX: R31.0 Gross hematuria (principal); N40.0 Benign prostatic hyperplasia without lower urinary tract symptoms; N20.0 Calculus of kidney; M54.9 Dorsalgia, unspecified | CPT/HCPCS: G0463; 51741; 51798; 52000; 74018; 81003; 87086; 88112; 99203 ==

== ENCOUNTER 2021-09-09 09:07 | Outpatient (CLI) | payer MEDICARE, OTHER, SELFPAY ==
[2021-09-09 09:18] VITALS: BMI 32.0
--- NOTE | 2021-09-09 09:34 | ECG_ITS ---
[facility] Test Date: 2021-09-09 Pat Name: Federico Menjivar Department: Room: Gender: Male Lead Embedded Software Engineer: Rachael Fritz : 1955 Requested By: Michael Gamino Order Number: [id number] Haylee MD: Joan Briceño M.D. Interpretive Statements NAME OF STUDY: LEXISCAN SESTAMIBI STRESS TEST INDICATION: Chest Pain, PROCEDURE: At the baseline, the EKG revealed normal sinus rhythm with a poor R wave progression. Possible old septal UT. Q waves in the high lateral leads, suggestive of lateral wall UT. Minimal left axis deviation. Nonspecific ST-T changes. The baseline blood pressure was 140/87 mm Hg with a heart rate of 83 beats/min. Lexiscan was infused over a period of 20 seconds. A total of 0.4 milligrams of Lexiscan was infused. The stress phase was continued for a total of 5 minutes. Heart rate at the end of the stress phase was 72 with a blood pressure 130/87. The EKG at the peak infusion revealed no significant changes. Sestamibi was injected 20 seconds after the Lexiscan infusion. Blood pressure at the end of the recovery phase was 140/86 with a heart rate of 70 per minute. CONCLUSION: 1. No significant EKG changes with the LexiScan infusion 2. No LexiScan induced chest pain or cardiac arrhythmia 3. Normal blood pressure and heart rate response 4. Sestamibi/sestamibi perfusion scan pending; see separate report. Electronically Signed On 09-12-2021 11:22:30 CDT by Joan Briceño M.D. [id number]
--- NOTE | 2021-09-09 09:36 | NMCV_ITS ---
NM sol perf SPECT r/s* [id number] Federico Menjivar Age: 65 Gender: M : 1955 Exam Date: 09/09/2021 10:23 Ordering Phys: Michael Gamino MD Technologist: MELISSA Davenport Exam Location: [facility] Indications: CHEST PAIN STRESS TEST Please see separate stress test report in [facility] for full findings IMAGE PROTOCOL Rest/Stress 1 Lexiscan Day Radiopharmaceutical Dose (mCi) Administration Site Administered by Rest: Tc-99m 10.6 IV MELISSA Davenport Sestamibi Stress:Tc-99m 32.7 IV MELISSA Phelan Sestamibi Rest: 09-Sep-2021 60 Discovery 630 Stress: 09-Sep-2021 30 Discovery 630 Images obtained in supine and prone position. 0.4mg Lexiscan. SPECT RESULTS Technical Quality: Excellent Raw Data Analysis: Normal Image Corrections: No attenuation or motion correction applied Summed Stress Score: 2 Summed Rest Score: 1 Summed Difference Score: 1 PERFUSION FINDINGS A small to moderate area of slightly decreased tracer uptake was noted in the mid inferior and mid inferolateral regions. Some reversibility was noted in the mid inferior region. FUNCTIONAL RESULTS (calculated via Gated SPECT) Stress Image LV EF (%): 75 Stress EDV (mL):99 TID: 0.9 Stress ESV (mL):25 FUNCTIONAL FINDINGS: Segmental wall motion analysis revealing no gross wall motion abnormalities. IMPRESSIONS 1. Myocardial perfusion imaging revealing small to moderate area of slightly decreased tracer uptake in the mid inferolateral region with some reversibility, suggesting myocardial scarring with a very small area of ischemia in the distribution of right coronary artery. 2. Normal LV ejection fraction 75%. 3. LV wall motion analysis revealing no gross wall motion normalities. 4. Normal LV volume. No similar previous studies are available for comparison Low probability for coronary ischemia, based on the above findings Dr Joan Briceño MD FACC (Electronically Signed) Final Date: 09 September 2021 20:46 S
[2021-09-09] MEDS: aminophylline 25 mg/mL SDV 10 mL IVP (11:04)
[2021-09-09 11:05] VITALS: BP 140/88; PULSE 70
== END 2021-09-09 09:08 | disposition home or self-care (01) ==
LOC: CDL 09:08
PROVIDERS: PCP Internal Medicine; Visit Provider Internal Medicine Pulmonary Disease
DX: R07.9 Chest pain, unspecified (principal)
CPT/HCPCS: 78452; 93017; A9500; J0280

== ENCOUNTER → 2021-09-12 14:33 | Outpatient (BNVA) | payer MEDICARE, OTHER, SELFPAY | PROVIDERS: PCP Internal Medicine; Visit Provider Urology | DX: R31.0 Gross hematuria (principal); N40.0 Benign prostatic hyperplasia without lower urinary tract symptoms | CPT/HCPCS: 88112 ==

== ENCOUNTER → 2021-09-25 12:13 | Outpatient (BNVA) | payer MEDICARE, OTHER, SELFPAY | PROVIDERS: PCP Internal Medicine; Visit Provider Internal Medicine | DX: R07.9 Chest pain, unspecified (principal); R94.39 Abnormal result of other cardiovascular function study; R06.09 Other forms of dyspnea; I10 Essential (primary) hypertension; E78.5 Hyperlipidemia, unspecified; Z86.73 Personal history of transient ischemic attack (TIA), and cerebral infarction without residual deficits; I49.8 Other specified cardiac arrhythmias; I44.4 Left anterior fascicular block; I25.2 Old myocardial infarction; R94.31 Abnormal electrocardiogram [ECG] [EKG] | CPT/HCPCS: 93005; 99204 ==

== ENCOUNTER 2021-10-06 12:00 | Observation (INO) | payer MEDICARE, OTHER, SELFPAY ==
[2021-10-01 16:42] LABS: Basophils # 0.1 10^3/uL (0.0-0.1); Basophils % 0.6 %; Eosinophils # 0.2 10^3/uL (0.0-0.8); Eosinophils % 1.8 %; Hematocrit 52.3 % (42.0-52.0); Hemoglobin 16.9 g/dL (11.7-16.6); Lymphocytes # 1.9 10^3/uL (0.8-4.8); Lymphocytes % 17.9 %; Mean Corpuscular HGB Conc 32.3 g/dL (30.0-36.0); Mean Corpuscular Hemoglobin 29.3 pg (28.0-34.0); Mean Corpuscular Volume 90.8 fl (80-94); Mean Platelet Volume 9.6 fL (7.4-10.4); Monocytes # 0.8 10^3/uL (0.2-0.9); Monocytes % 7.5 %; Neutrophils # 7.68 10^3/uL (1.8-7.7); Neutrophils % 71.3 %; Nucleated Red Blood Cells % 0 %; Platelet Count 267 10^3/cmm (130-400); Red Blood Count 5.76 10^6/uL (4.1-5.3); Red Cell Distribution Width 13.8 % (12.1-15.1); White Blood Count 10.8 10^3/uL (4.0-10.0)
[2021-10-01 17:05] LABS: INR 0.96 (0.83-1.21); Prothrombin Time (Patient) 13.1 Seconds (12.0-15.1)
[2021-10-01 18:38] LABS: Anion Gap 15.6 (5-19); Blood Urea Nitrogen 17 mg/dL (8-23); Calcium 9.1 mg/dL (8.5-10.5); Carbon Dioxide 24 mmol/L (22-29); Chloride 102 mmol/L (98-107); Glomerular Filtration Rate 74.8 mL/min (90-130); Glucose 116 mg/dL (65-115); Osmolality Calculated 289 mOsm/kg (285-295); Potassium 3.6 mmol/L (3.5-5.1); Sodium 138 mmol/L (136-145)
[2021-10-06] VITALS (30 sets, daily range): BP systolic 110–153; BP diastolic 73–103; PULSE 66–87; RESP 10–23; TEMP 36.8; O2SAT 94–95; BMI 36.3; BMI 37.7
--- NOTE | 2021-10-06 09:00 | XACV_ITS ---
Exam Room: 2 Ht: 183 cm Wt: 130 kg BSA: 2.62 m2 Gender: Male : 1955 Any Known Allergies: Other Exam Priority: Routine Procedure(s): Procedure Description: Diagnostic procedure Procedure Description: PCI procedure Procedure Description: Left Heart Catheterization Procedure Description: O2 saturation Procedure Description: Drug Eluting Coronary Stent Procedure Description: PTCA Procedure Description: Miscellaneous Procedure Description: ACT Procedure Description: Coronary Angiography Diagnostic Cath Status: Elective Diagnostic Findings * Left Main has no significant disease. * Circumflex has mild luminal irregularities. * Mid Left Anterior Descending: significant 70% stenosis, MEGAN: 3 flow. LAD gives rise to large sized diagonal artery that is free of significant disease. * INDICATION:65-year-old man with past medical history of hypertension and dyslipidemia has been referred because of chest discomfort, dyspnea on exertion and abnormal stress test. According to patient for the last 6 to 7 months he has been noticing worsening dyspnea on exertion. He also feels chest pressure and tightness. Now he cannot walk 1 block without having to stop secondary to the symptoms. . * Right Coronary Artery has no disease. * Coronary angiography shows right dominance. PCI Status: Elective PCI Indication: Other Interventional Findings * Procedure detail: We engaged left main artery with XB 3.5 guide catheter. IV heparin was administered to maintain ACT above 250 s. 0.014 run-through guidewire was used to cross the mid LAD stenosis and was put in the distal vessel. We then predilated the stenosis with 2.5 x 12 mm semicompliant balloon. There was still residual stenosis we decided to put a stent there. 2.75 x 15 mm resolute Gardner drug-eluting stent was put in the mid LAD. At this time final angiogram was performed that showed excellent stent expansion, MEGAN-3 flow and no residual stenosis. Patient left the Geometrician in a stable condition. * Mid Left Anterior Descendin% stenosis treated with a AB TREK 2.50X12 RX BALLOON, and MDT R OSWALDO 2.75X15 SANDEE. 0% residual stenosis, MEGAN: 3 flow. Conclusions 1. Severe mid LAD stenosis s/p revascularization with SANDEE x1.. 2. Mid Left Anterior Descending was treated with a Balloon, and Drug Eluting Stent. Recommendations * Continue aspirin and Plavix for at least 1 year. * High intensity statin therapy. * Outpatient cardiology follow-up in 4-week. Interventional RX Recommendation: PCI w/o planned CABG Diagnostic RX Recommendation: PCI w/o planned CABG Anticoagulation: Heparin Pressures Phase:Rest AO : 122 / 75 ( 96 ) @ 12:07:00 PM 130 / 58 ( 90 ) @ 12:07:00 PM 107 / 83 ( 96 ) @ 12:09:00 PM 110 / 82 ( 95 ) @ 12:16:00 PM 98 / 75 ( 87 ) @ 12:27:00 PM LV : 138 / -1 / 15 @ 12:07:00 PM 141 / 2 / 19 @ 12:07:00 PM RV : 36 / 2 / 10 @ 11:48:00 AM PA : 31 / 16 ( 22 ) @ 11:47:00 AM RA : a wave = 16 v wave = 15 mean = 15 @ 11:49:00 AM PCW : a wave = 19 v wave = 19 mean = 17 @ 11:46:00 AM O2 Content Phase:Rest PA : O2 Content O2: 74.2 @ 12:07:00 PM Saturations Phase:Rest AO : 90 @ 12:07:00 PM PA : 74 @ 12:07:00 PM Cardiac Output Phase:Rest Tamanna : 9 @ 12:00:52 PM Tamanna Cardiac Index: 4 @ 12:00:52 PM Flow Phase:Rest Qp : 9 @ 12:00:52 PM Qs : 9 @ 12:00:52 PM Valves Phase:DefaultPhase AV : 18.0 @ 12:00:52 PM AV Mean Gradient: 16.0 @ 12:00:52 PM AV Flow: 426 @ 12:00:52 PM AV Area: 2.4 @ 12:00:52 PM AV Area Index: 0.97 @ 12:00:52 PM Clinical Evaluation EBL: 5mL-10mL Procedural Details Procedure Consent Obtained. Pre-Procedure Time Out. Identified patient by full name and date of as verbalized by the patient/guarantor. Does the consent match the physician's order: Yes. Accurate & Complete Informed Consent: Yes. Inpatient/Outpatient History & Physical on Chart: Yes. If H&P is completed, is and addenduem needed: No; If yes, is the addendum complete: N/A. Visualize and Verify Site with Patient/Guarantor: N/A. Relevant Radiology Images available: Yes. Pre-op teaching completed and patient verbalized understanding. The risks, benefits, and alternatives of sedation and/or procedure were discussed by physician. The patient agrees to continue. Procedure started. Raegan Bellamy RT(R) was relieved by Rachael Fritz RN, ACTING TEACHER as monitoring person. [facility] Clinical Fraility Score: 3: Managing Well. Geometrician Indications: Worsening Angina. Chest Pain Symptom Assessment: Typical Angina Symptoms. Cardiovascular Instability: No. PERRLA. Strong, equal hand quiller operator bilaterally. Lungs clear x 5 lobes. IV Site on Arrival: 20 gauge in the right wrist. IV Fluids: 0.9% NaCl at KVO. 0 mL infused prior to metallurgy laboratory technician. Pre Procedural Pulses: bilateral dorsalis pedis was 3+. Pre Procedural Pulses: right posterior tibial was 2+. Pre Procedural Pulses: left posterior tibial was 1+. Pre Procedural Pulses: right radial was 1+. Pre Procedural Pulses: left radial was 2+. right groin was prepped with chloroprep then draped in the usual sterile fashion. right radial was prepped with chloroprep then draped in the usual sterile fashion. Physician notified. Baseline sample Acquired. HR: 73 BPM. Physician arrived. Patient's spouse stated that she was going to get some coffee and she would return to the Geometrician waiting room. Dr. Anderson will update there at the completion of the procedure. Physician scrubbed in. Immediate Pre-Procedure Time Out. Correct Patient: Yes; Correct Procedure: Yes; Correct Site: Yes; Correct Patient Position: Yes; Correct Supplies: Yes; Dried Flammable Prep: Yes; Blood Products Available: N/A;. Wire inserted in the existing 20 g PIV to right brachial vein. Current catheter kinked. Wire and catheter out with manual pressure by Dr. Anderson. Lidocaine 1% infiltrated to the right brachial. Venous access obtained with ultrasound guidance. [place] in. Oximetry samples were obtained. Normal venous range: 60-85%. Normal arterial range: 95-100%. Pressure measurements obtained. [place]-David out. Lidocaine 1% infiltrated to the right radial. Unable to obtain radial access. MD attempting to gain access in the Femoral artery. Lidocaine 1% infiltrated to the right groin. Arterial access obtained with micropuncture set. A 5 pitcairn islander JR4 catheter in over wire. Oxygen started at 2liters/min via nasal canula. Multiple views taken of right coronary artery. Catheter redirected to the LV. EDP Sample taken: LV 138/-2,15; HR: 70 BPM; SpO2: 92%. Pullback taken: LV 141/2,19; AO 122/75(96); Mean: 16mmHg, Peak to Peak: 18mmHg, SEP: 20sec/min; HR: 70 BPM; SpO2: 91%. Catheter removed over the standard wire. A 5 pitcairn islander JL4 catheter in over wire. Multiple views taken of left coronary artery. Catheter removed over the standard wire. Patient's family updated by Pepe Reed RN, ACTING TEACHER. 6 pitcairn islander XB 3.5 guide catheter was inserted over the wire. Runthrough guidewire was advanced through the guide catheter to lesion in the mid LAD. Inflation number : 1 A AB TREK 2.50X12 RX BALLOON was prepped and advanced across the Mid LAD , then inflated to 12 JAGUAR for 0:18 seconds. Inflation number: 2 The AB TREK 2.50X12 RX BALLOON was reinflated across the Mid LAD, to 12 JAGUAR for 0:20 seconds. Balloon out. Results checked. Wire out. Runthrough guidewire was advanced through the guide catheter to lesion in the mid LAD. Inflation Number : 3 Marion Hemphill OSWALDO 2.75X15 SANDEE -Lot Number# [id number] was prepped and advanced across the Mid LAD. The stent was deployed at 12 JAGUAR for 0:22 seconds. Exp 2024-01-20. Stent balloon out over wire. Results checked. Wire out. ACT drawn. Results 440 seconds. Therapeutic limits - pre-heparin administration 90-150 seconds and monitoring heparin during a vascular procedure >250 seconds. Guide catheter out. A Right femoral angiogram was performed to determine safe placement of closure device. Angioseal placed without complications. No signs or symptoms of hematoma noted. Sterile dressing applied per usual sterile fashion. Lot # [id number]. Exp. 2022-05-22. Post Procedure: Pulses reassessed and unchanged. A Angio-Seal VIP ([place]) was successful obtaining hemostatsis at the Right Femoral artery insertion site. A Manual Compression was successful obtaining hemostatsis at the Right Brachial Vein insertion site. PERRLA. Strong, equal hand quiller operator bilaterally. No VTE prophylaxis required. Post-op diagnosis: Severe Mid LAD stenosis s/p one stent. Complications: none. Estimated blood loss: 5mL-10mL. Responsiveness - Normal response to verbal stimuli; alert and oriented, PERRLA. Airway - Unaffected, no intervention required; spontaneous ventilation. Circulation: W/N/L, pulses unchanged. Nausea/Vomiting: No. Medication's Wasted: Nitro = 49.8 mg. Medication's Wasted: Heparin = 4000 units. Total IV fluids: 50 mL. Right Brachial Sheath removed and manual pressure held until hemostasis was achieved. Sterile 4x4 and coban applied to the puncture site to make a bulky pressure dressing. No oozing or hematoma noted. Post sheath removal instructions were given and the patient verbalized understanding. Procedure completed. Patient transferred by bed to 1st floor. Vital chart was stopped. Access Site Site: Right Brachial Vein Sheath Size: 6 Fr Hemostasis Method: Manual Compression Hemostasis Success: Successful Site: Right Femoral artery Sheath Size: 6 Fr Hemostasis Method: Angio-Seal VIP ([place]. [place]ad[place]) Hemostasis Success: Successful Procedure Medications Start: 10:34 AM Stop: 10:34 AM Medication: Versed Amount: 1 mg Route: I.V. Start: 10:40 AM Stop: 10:40 AM Medication: Versed Amount: 1 mg Route: I.V. Start: 10:45 AM Stop: 10:45 AM Medication: Fentanyl Amount: 25 mcg Route: I.V. Start: 10:58 AM Stop: 10:58 AM Medication: Versed Amount: 1 mg Route: I.V. Start: 10:58 AM Stop: 10:58 AM Medication: Fentanyl Amount: 50 mcg Route: I.V. Start: 11:13 AM Stop: 11:13 AM Medication: Heparin Amount: 29605 units Route: I.V. Start: 11:15 AM Stop: 11:15 AM Medication: Versed Amount: 1 mg Route: I.V. Start: 11:22 AM Stop: 11:22 AM Medication: Nitrogylcerin Amount: 200 mcg Route: I.C. Start: 11:30 AM Stop: 11:30 AM Medication: Heparin Amount: 2000 units Route: I.V. Start: 11:35 AM Stop: 11:35 AM Medication: Versed Amount: 1 mg Route: I.V. Start: 11:37 AM Stop: 11:37 AM Medication: Versed Amount: 1 mg Route: I.V. Start: 11:37 AM Stop: 11:37 AM Medication: Fentanyl Amount: 25 mcg Route: I.V. Start: 11:54 AM Stop: 11:54 AM Medication: Plavix Amount: 300 mg Route: P.O. I, the attending physician, have reviewed and verified all procedure medications. Yes, all medications given per verbal order History/Risk Factors Hypertension: No Dyslipidemia: Yes Peripheral Arterial Disease (PAD): No Myocardial Infarction (TX): No Obesity: Yes Renal Disease: No Prior Interventions PCI: No CABG: No Valve Surgery: No Report Signatures Finalized by Avinash Anderson MD on 10/16/2021 03:14 PM
[2021-10-06] MEDS: diphenhydrAMINE 50 mg Capsule PO (09:42)
[2021-10-06 11:12] LABS: ABG PCO2 45.7 mmHg (35-45); ABG PH Result 7.34 (7.35-7.45); Arterial Blood Gas Hematocrit 51.8 % (42-52); Blood Gas Allen Test Pos; Blood Gas Sample Type Arterial; HCO3 ABG 24.3 mmol/L (22-26); PO2 ABG 62.8 mmHg (80.0-100.0)
[2021-10-06 11:14] LABS: Blood Gas Operator Identificat ED
--- NOTE | 2021-10-06 11:47 | W.PM.OPSUD ---
Surgery/Procedure H&P Update DATE OF PROCEDURE: October 06, 2021 DATE H&P PERFORMED: 09/25/21 H&P UPDATE INFORMATION: I have reviewed H&P completed within last 30 days, I have examined patient prior to procedure and No changes to prior documentation PREOP DIAGNOSIS: Worsening angina/Dyspean on exertion PRIMARY INDICATION FOR PROCEDURE: Worsening angina/Dyspean on exertion PLANNED PROCEDURE: Operation Date: 10/06/21 10:00 Proposed Procedures p Cardiac Catheterization 74744 R94.39(Bilateral) - Avinash Anderson M.D Possible percutaneous coronary intervention PATIENT REASSESSED PRIOR TO SEDATION, WITH NO CHANGE NOTED: Yes PHYSICAL EXAM: alert, oriented x 3, clear to auscultation bilaterally and regular rate & rhythm AIRWAY EVAL/ANESTHESIA PLAN: ASA III, Local Anesthesia, Risks, benefits & alternatives of sedation and/or procedure discussed and Patient agrees to continue as planned ADDITIONAL INFORMATION: Moderate sedation
[2021-10-06] MEDS: sodium chloride 0.9% 1,000 ML 100 ML IV (12:00)
--- NOTE | 2021-10-06 12:15 | PC.NURSE ---
received from cardiac optical lab technician into room 108 via bed at 1200.report received.pt is alert and oriented x 4.denies pain at present.sr on monitor.right venous brachial pressure drsg dry and intact.right arterial femoral sheath was pulled in caath lab.site had been angiosealed.right groin drsg is dry and intact.no hematoma noted.right leg is warm to touch and with brisk capillary refill.dp pulse noted.pt instructed in activity restrictions s/p femoral sheath pull..and instructed to notify staff for any bleeding,pain,numbness..or for any concerns at all.pt verb understanding of instructions
--- NOTE | 2021-10-06 18:51 | PC.NURSE ---
pt ambulated in room.no hematoma formation noted.tolerated well.transferred to room 254-1 via w/c at this time.report given.
[2021-10-06] MEDS: topiramate 25 mg Tablet PO (19:55)
[2021-10-06] MEDS: atorvastatin 40 mg Tablet PO (19:55)
[2021-10-06] MEDS: temazepam 15 mg Capsule PO (19:55)
[2021-10-06] MEDS: acetaminophen 325 mg Tablet 650 MG PO (19:55)
[2021-10-06] MEDS: predniSONE 5 mg Tablet PO (19:55)
--- NOTE | 2021-10-06 23:30 | PC.NURSE ---
Patient did not have IV to right AC upon my arrival on shift.
[2021-10-07] VITALS: BP 128/79; PULSE 74; RESP 17; TEMP 36.7; O2SAT 92
[2021-10-07 03:15] VITALS: PULSE 69
[2021-10-07 04:00] VITALS: BP 128/81; PULSE 74; RESP 16; TEMP 36.6; O2SAT 95
[2021-10-07 05:02] LABS: Basophils # 0.1 10^3/uL (0.0-0.1); Basophils % 0.5 %; Eosinophils # 0.2 10^3/uL (0.0-0.8); Hemoglobin 16.3 g/dL (11.7-16.6); Lymphocytes # 1.3 10^3/uL (0.8-4.8); Lymphocytes % 14.1 %; Mean Corpuscular Hemoglobin 29.4 pg (28.0-34.0); Mean Corpuscular Volume 92.1 fl (80-94); Mean Platelet Volume 9.5 fL (7.4-10.4); Monocytes # 0.6 10^3/uL (0.2-0.9); Monocytes % 5.9 %; Neutrophils # 7.33 10^3/uL (1.8-7.7); Neutrophils % 76.9 %; Nucleated Red Blood Cells % 0 %; Platelet Count 235 10^3/cmm (130-400); Red Blood Count 5.54 10^6/uL (4.1-5.3); White Blood Count 9.5 10^3/uL (4.0-10.0)
[2021-10-07 05:36] LABS: Anion Gap 16.1 (5-19); Blood Urea Nitrogen 17 mg/dL (8-23); Calcium 8.5 mg/dL (8.5-10.5); Carbon Dioxide 21 mmol/L (22-29); Chloride 104 mmol/L (98-107); Glomerular Filtration Rate 84.4 mL/min (90-130); Glucose 190 mg/dL (65-115); Osmolality Calculated 291 mOsm/kg (285-295); Potassium 4.1 mmol/L (3.5-5.1); Sodium 137 mmol/L (136-145)
[2021-10-07 06:54] LABS: Glucose Point of Care 142 mg/dL (70-110)
--- NOTE | 2021-10-07 07:50 | P.PN_ITS ---
Subjective Subjective: Patient is doing well. underwent right and left heart cath yesterday. Had severe mid LAD stenosis that was treated with SANDEE X 1. He is chest pain free today. Access site normal without complications Vitals/I&O/Wt Last Vital Signs Temp 97.9 F 10/07/21 04:00 Pulse 74 10/07/21 04:00 Resp 16 10/07/21 04:00 BP 128/81 10/07/21 04:00 Pulse Ox 95 10/07/21 04:00 O2 Del Method 10/06/21 12:13 10/06/21 10/07/21 10/07/21 22:59 06:59 14:59 Intake Total 1680 / 1680 Balance 1680 / 1105 Weight last 48 hrs Weight 278 lb 0.6 oz Weight 268 lb Physical Exam Narrative: GENERAL: Patient is alert, awake and oriented x3. [] NECK: No jugular vein distension. [] HEENT: No cyanosis. No icterus. No pallor. [] HEART: Regular S1 and S2. No murmur, rub or gallop. [] LUNGS: Clear to auscultate bilaterally. [] ABDOMEN: Soft, nontender and nondistended. Positive bowel sounds. No guarding, rebound or tenderness. [] CENTRAL NERVOUS SYSTEM: Grossly nonfocal. [] EXTREMITIES: Lower extremities with no edema bilaterally. Pulses palpable in the lower extremities, both dorsalis pedis and posterior tibial. [] Data : 10/07/21 04:40 10/07/21 04:40 A&P Assessment and plan (1) Dyspnea on exertion: Status: Acute (2) Dyslipidemia: Status: Chronic (3) Worsening angina: Status: Acute Plan Patient underwent right and left heart cath yesterday. Left heart cath showed severe mid LAD stenosis that was treated with SANDEE x1. Patient is doing well. Ready to be discharged today. Will continue on aspirin and Plavix for at least 1 year. High intensity statin therapy with atorvastatin 40 mg daily. Patient recommended to avoid NSAIDs. Patient will be discharged home today. Outpatient cardiology follow-up. Attestations Medical Necessity Statement*: Care not expected to cross 2 midnights. Patient came for outpatient procedure and was observed overnight post PCI to LAD. Coding Level of Care Code Acute Senior Management Consultant for Eddie Chatterjee Diagnoses Dyspnea on exertion R06.09 Dyslipidemia E78.5 Worsening angina I20.0
[2021-10-07 08:00] VITALS: BP 133/88; PULSE 72; RESP 17; TEMP 36.4; O2SAT 94
[2021-10-07] MEDS: aspirin 81 mg EC Tablet PO (09:29)
[2021-10-07] MEDS: clopidogrel 75 mg Tablet PO (09:29)
[2021-10-07] MEDS: tamsulosin 0.4 mg Capsule PO (09:29)
[2021-10-07 09:41] VITALS: BP 133/88; PULSE 72; RESP 17; TEMP 36.4; O2SAT 94
== END 2021-10-07 10:30 | disposition home or self-care (01) ==
LOC: CSU 12:23 → MEDSURG 19:17
PROVIDERS: Admitting Provider Internal Medicine; PCP Internal Medicine; Visit Provider Internal Medicine
DX: I25.110 Atherosclerotic heart disease of native coronary artery with unstable angina pectoris (principal); I10 Essential (primary) hypertension; E78.5 Hyperlipidemia, unspecified; E66.9 Obesity, unspecified; Z68.37 Body mass index [BMI] 37.0-37.9, adult; M79.7 Fibromyalgia; E11.9 Type 2 diabetes mellitus without complications; Z86.73 Personal history of transient ischemic attack (TIA), and cerebral infarction without residual deficits
CPT/HCPCS: 36415; 36416; 36600; 80048; 82803; 82962; 85025; 85347; 85610; 93453; 93460; 96360; 96361; 99152; 99153; C1725; C1751; C1760; C1769; C1874; C1887; C1894; C9600; G0378; J1644; J2250; J3010; J3490; J7030; J7512; Q0163; Q9967

== ENCOUNTER → 2021-10-15 09:36 | Outpatient (BNVA) | payer MEDICARE, OTHER, SELFPAY | PROVIDERS: PCP Internal Medicine; Visit Provider Nurse Practitioner Family | DX: I25.10 Atherosclerotic heart disease of native coronary artery without angina pectoris (principal); I10 Essential (primary) hypertension | CPT/HCPCS: 80048; 99214 ==

== ENCOUNTER 2021-11-03 14:14 | Outpatient (CLI) | payer MEDICARE, OTHER, SELFPAY ==
--- NOTE | 2021-11-03 15:15 | USCV_ITS ---
Federico Menjivar Age: 65 Gender: M : 1955 Exam Date: 11/03/2021 15:21 Ordering Phys: Avinash Anderson M.D ([email or web address]) Technologist: Rebekah Tineo Exam Location: [facility] [place] Indication: SOB BP: 120 / 58 HR: 68 Rhythm: Sinus Technical Quality: Fair MEASUREMENTS (Male / Female) Normal Values 2D ECHO LV Diastolic Diameter PLAX 3.6 cm 4.2 - 5.9 / 3.9 - 5.3 cm LV Systolic Diameter PLAX 1.4 cm IVS Diastolic Thickness 1.7 cm 0.6 - 1.0 / 0.6 - 0.9 cm IVS Systolic Thickness 1.9 cm LVPW Diastolic Thickness 1.1 cm 0.6 - 1.0 / 0.6 - 0.9 cm LVPW Systolic Thickness 2.0 cm LVOT Diameter 2.2 cm LV Ejection Fraction 2D Teich 91.5 % LV Ejection Fraction MOD 2C 54.3 % LV Ejection Fraction 2C AL 55.8 % LA Diameter 3.1 cm LA Width 3.9 cm LA Height 6.3 cm RA Width 4.0 cm RA Height 5.4 cm Aorta at Sinotubular Diameter 3.3 cm IVC Diameter 1.5 cm M-MODE MV E Point Septal Separation 0.3 cm DOPPLER AV Peak Velocity 115.0 cm/s LVOT Peak Velocity 120.0 cm/s AV Area Cont Eq vti 4.0 cm squared AV Area Cont Eq pk 4.0 cm squared MV Peak Velocity 80.0 cm/s MV Area PHT 3.6 cm squared Mitral E to A Ratio 1.2 MV E' Velocity 69.0 cm/s TR Peak Velocity 88.0 cm/s TR Peak Gradient 3.1 mmHg Right Atrial Pressure 3.0 mmHg Pulmonary Artery Systolic Pressu 6.1 mmHg PV Peak Velocity 94.0 cm/s RV Acceleration Time 0.1 s RV Ejection Time 0.3 s RV AcT/ET 0.4 FINDINGS Left Ventricle Left ventricle is normal in size. LV systolic function is normal with EF 55 to 60%. No regional wall motion abnormalities are seen. Diastolic function is normal Right Ventricle Grossly normal in size and function Right Atrium Normal in size Left Atrium Normal in size Mitral Valve Grossly normal mitral valve. Mild mitral regurgitation. Aortic Valve Structurally normal aortic valve. No significant stenosis or regurgitation Tricuspid Valve Trace tricuspid regurgitation. Insufficient TR jet to calculate RVSP. Pulmonic Valve Not well visualized Pericardium Grossly normal Aorta Aorta is normal in size IVC CONCLUSIONS Technically limited echocardiogram because of poor ultrasonic windows LV systolic function is normal with EF of 55-60% Diastolic function is normal Mild mitral regurgitation Trace tricuspid regurgitation Compared to prior echocardiogram from 2018, no significant changes are seen. Avinash Anderson MD (Electronically Signed) Final Date: 15 November 2021 22:07 S
== END 2021-11-03 14:15 | disposition home or self-care (01) ==
LOC: RAD 14:14
PROVIDERS: PCP Internal Medicine; Visit Provider Internal Medicine
DX: R06.02 Shortness of breath (principal); I08.1 Rheumatic disorders of both mitral and tricuspid valves
CPT/HCPCS: 93306

== ENCOUNTER → 2021-11-07 10:05 | Outpatient (BNVA) | payer MEDICARE, OTHER, SELFPAY | PROVIDERS: PCP Internal Medicine; Visit Provider Internal Medicine Cardiovascular Disease | DX: I25.10 Atherosclerotic heart disease of native coronary artery without angina pectoris (principal); I10 Essential (primary) hypertension; F17.229 Nicotine dependence, chewing tobacco, with unspecified nicotine-induced disorders; R06.00 Dyspnea, unspecified; R07.9 Chest pain, unspecified; M79.7 Fibromyalgia; G43.009 Migraine without aura, not intractable, without status migrainosus; E78.5 Hyperlipidemia, unspecified; Z86.73 Personal history of transient ischemic attack (TIA), and cerebral infarction without residual deficits | CPT/HCPCS: 99213 ==

== ENCOUNTER → 2021-12-10 15:48 | Outpatient (BNVA) | payer MEDICARE, OTHER, SELFPAY | PROVIDERS: PCP Family Medicine; Visit Provider Family Medicine | DX: E11.9 Type 2 diabetes mellitus without complications (principal); G45.9 Transient cerebral ischemic attack, unspecified; Z76.89 Persons encountering health services in other specified circumstances; I25.10 Atherosclerotic heart disease of native coronary artery without angina pectoris; I10 Essential (primary) hypertension; E78.5 Hyperlipidemia, unspecified; R31.0 Gross hematuria; L40.50 Arthropathic psoriasis, unspecified | CPT/HCPCS: 80053; 80061; 83036; 84153; 84443; 85025 ==

== ENCOUNTER 2022-01-06 10:22 | Outpatient (CLI) | payer MEDICARE, OTHER, SELFPAY ==
--- NOTE | 2022-01-06 10:51 | XR_ITS ---
WS: [id number] Exam: XR KUB [id number] Date/Time of Exam: 01/06/2022 10:54 AM Reason For Exam: Kidney Stone Comparison 09/04/2021. No bowel obstruction or free air noted. Calcification superimpose both kidneys apparently representin g known renal stones. Large faceted calcifications seen in the upper right quadrant of the abdomen ap parently representing multiple large gallstones. Bony structures are intact. No sign of organ enlarge ment. XR/XR KUB [id number] IMPRESSION: 1. No acute abdominal finding. 2. Multiple bilateral renal stones. 3. Multiple prominent gallstones.
== END 2022-01-06 10:23 | disposition home or self-care (01) ==
LOC: RAD 10:26
PROVIDERS: PCP Family Medicine; Visit Provider Urology
DX: N20.0 Calculus of kidney (principal); K80.80 Other cholelithiasis without obstruction; R39.9 Unspecified symptoms and signs involving the genitourinary system
CPT/HCPCS: 74018; 81003; 99213

== ENCOUNTER 2022-01-13 07:39 | Outpatient (CLI) | payer MEDICARE, OTHER, SELFPAY ==
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
[2022-01-13] MEDS: iohexol 350 mg/mL 100 mL Btl PO (08:44)
[2022-01-13] MEDS: iohexol 350 mg/mL 100 mL Btl IV (08:58)
== END 2022-01-13 07:40 | disposition home or self-care (01) ==
LOC: RAD 07:39
PROVIDERS: PCP Family Medicine; Visit Provider Internal Medicine
DX: R10.2 Pelvic and perineal pain (principal); S32.019A Unspecified fracture of first lumbar vertebra, initial encounter for closed fracture; W30.9XXA Contact with unspecified agricultural machinery, initial encounter; K80.20 Calculus of gallbladder without cholecystitis without obstruction; N28.1 Cyst of kidney, acquired; K76.0 Fatty (change of) liver, not elsewhere classified
CPT/HCPCS: 74177; Q9967

== ENCOUNTER → 2022-04-24 11:24 | Outpatient (BNVA) | payer MEDICARE, OTHER, SELFPAY | PROVIDERS: PCP Family Medicine; Visit Provider Internal Medicine | DX: I10 Essential (primary) hypertension (principal); R94.39 Abnormal result of other cardiovascular function study; R06.09 Other forms of dyspnea; E78.5 Hyperlipidemia, unspecified; Z79.82 Long term (current) use of aspirin | CPT/HCPCS: 99214 ==

== ENCOUNTER 2022-05-21 14:20 | Outpatient (CLI) | payer MEDICARE, OTHER, SELFPAY ==
--- NOTE | 2022-05-21 14:51 | MR_ITS ---
WS: [id number] MRI BRAIN WITH HIGH-RESOLUTION IMAGING THROUGH THE INTERNAL AUDITORY CANALS WITHOUT AND WITH CONTRAST HISTORY: UNSPECIFIED HEARING LOSS; Tinnitus, left EAR COMPARISON: 08/24/2016 TECHNIQUE: Multiplanar, multisequence imaging is performed through the brain. Additional 3 mm imaging performed in multiple planes through the internal auditory canal. Postcontrast imaging with 20 ml's of MultiHance. No acute intracranial hemorrhage, midline shift, edema or mass effect. Mild atrophy and very mild small vessel ischemic disease. No prior infarcts. Ventricles and extra-axial spaces are normal. No inferior displacement of cerebellar tonsils. Clivus and pituitary gland are normal. Internal and external auditory canals: Unremarkable. Cranial nerves VII and VIII complexes: Unremarkable. No enhancement or mass. Cerebellopontine angles: Normal. Paranasal sinuses: Mild mucoperiosteal thickening with enhancement throughout the frontal ethmoid and RIGHT maxillary sinus. Increased opacification throughout the RIGHT maxillary sinus from sinusitis. This has changed and progressed since the prior study. Mastoid air cells: Normal. Calvarium and scalp: Normal. Visualized [place] of [place] and dural venous sinuses demonstrate no abnormality. MR/MR iac's wo/w con* [id number] IMPRESSION: 1. No mass or abnormal enhancement along the internal auditory canals or cereb ellopontine angles. 2. Posterolateral atrophy and small vessel ischemic disease. Very similar to t he prior study. No obvious progression since the prior study. Mild periosteal e nhancement involving the ethmoid and frontal sinuses and more dense opacificati on RIGHT maxillary sinus.
[2022-05-21] MEDS: gadobenate dimeglumine 20 mL vial IV (15:51)
== END 2022-05-21 14:21 | disposition home or self-care (01) ==
LOC: RAD 14:23
PROVIDERS: PCP Family Medicine; Visit Provider Specialist
DX: H93.12 Tinnitus, left ear (principal); H91.90 Unspecified hearing loss, unspecified ear; G31.9 Degenerative disease of nervous system, unspecified; I67.82 Cerebral ischemia
CPT/HCPCS: 70553; A9577

== ENCOUNTER 2022-10-20 10:09 | Outpatient (CLI) | payer MEDICARE, OTHER, SELFPAY ==
[2022-10-20 11:01] LABS: Basophils % 0.4 %; Eosinophils # 0.1 10^3/uL (0.0-0.8); Eosinophils % 1.3 %; Hematocrit 50.3 % (37-53); Lymphocytes # 2.8 10^3/uL (0.8-4.8); Lymphocytes % 58.5 %; Mean Corpuscular HGB Conc 32.2 g/dL (30-55); Mean Corpuscular Hemoglobin 28.8 pg (27-33); Mean Corpuscular Volume 89.3 fl (82-101); Mean Platelet Volume 9.4 fL (7.4-10.4); Monocytes # 0.5 10^3/uL (0.2-0.9); Monocytes % 11.1 %; Neutrophils # 1.36 10^3/uL (1.8-7.7); Neutrophils % 28.5 %; Nucleated Red Blood Cells % 0 %; Platelet Count 206 10^3/cmm (157-399); Red Blood Count 5.63 10^6/uL (3.85-5.65); Red Cell Distribution Width 13.5 % (12.1-15.1); White Blood Count 4.77 10^3/uL (3.29-11.43)
[2022-10-20 11:25] LABS: Alanine Aminotransferase 123 U/L (0-41); Albumin Level 3.7 g/dL (3.5-5.2); Alkaline Phosphatase 153 U/L (40-130); Blood Urea Nitrogen 21 mg/dL (8-23); Calcium 8.8 mg/dL (8.5-10.5); Carbon Dioxide 21 mmol/L (22-29); Chloride 101 mmol/L (98-107); Globulin 3.8 g/dL (1.3-4.6); Glomerular Filtration Rate 74.5 mL/min (90-130); Glucose 298 mg/dL (65-115); Osmolality Calculated 292 mOsm/kg (285-295); Sodium 134 mmol/L (136-145); Total Bilirubin 0.7 mg/dL (0.15-1.2); Total Protein 7.5 g/dL (6.6-8.7)
[2022-10-20 11:28] LABS: Anion Gap 15.9 (5-19); Aspartate Amino Transferase 81 U/L (0-40); Potassium 3.9 mmol/L (3.5-5.1)
[2022-10-21 13:08] LABS: Aldolase 16.7 U/L (< OR = 8.1)
[2022-10-21 13:59] LABS: SS A Ro Sjogrens Antibody <1.0 NEG AI (<1.0 NEG); SS-B/LA IGG <1.0 NEG AI (<1.0 NEG)
[2022-10-21 16:45] LABS: Anti-Nuclear Antibody Screen NEGATIVE (NEGATIVE)
== END 2022-10-20 10:10 | disposition home or self-care (01) ==
PROVIDERS: PCP Family Medicine; Visit Provider Internal Medicine Rheumatology
DX: Z51.81 Encounter for therapeutic drug level monitoring (principal)
CPT/HCPCS: 36415; 80053; 82085; 85025; 86038; 86235

== ENCOUNTER → 2022-10-30 09:04 | Outpatient (BNVA) | payer MEDICARE, OTHER, SELFPAY | PROVIDERS: PCP Family Medicine; Visit Provider Internal Medicine | DX: R07.9 Chest pain, unspecified (principal); R94.39 Abnormal result of other cardiovascular function study; R06.09 Other forms of dyspnea; I10 Essential (primary) hypertension; E78.5 Hyperlipidemia, unspecified | CPT/HCPCS: 99214 ==

== ENCOUNTER 2022-11-27 10:40 | Outpatient (CLI) | payer MEDICARE, OTHER, SELFPAY ==
[2022-11-27 11:12] LABS: Basophils % 0.7 %; Eosinophils # 0.1 10^3/uL (0.0-0.8); Hematocrit 52.5 % (37-53); Lymphocytes # 1.8 10^3/uL (0.8-4.8); Lymphocytes % 30.6 %; Mean Corpuscular HGB Conc 33.1 g/dL (30-55); Mean Corpuscular Hemoglobin 29.4 pg (27-33); Mean Corpuscular Volume 88.8 fl (82-101); Mean Platelet Volume 9.6 fL (7.4-10.4); Monocytes # 0.3 10^3/uL (0.2-0.9); Monocytes % 5.2 %; Neutrophils % 62.2 %; Nucleated Red Blood Cells % 0 %; Platelet Count 192 10^3/cmm (157-399); Red Blood Count 5.91 10^6/uL (3.85-5.65); Red Cell Distribution Width 13.1 % (12.1-15.1); White Blood Count 5.95 10^3/uL (3.29-11.43)
[2022-11-27 11:34] LABS: Alanine Aminotransferase 113 U/L (0-41); Albumin Level 3.6 g/dL (3.5-5.2); Alkaline Phosphatase 170 U/L (40-130); Anion Gap 14.9 (5-19); Aspartate Amino Transferase 87 U/L (0-40); Blood Urea Nitrogen 22 mg/dL (8-23); C Reactive Protein 23.4 mg/L (0.0-4.9); Calcium 9.3 mg/dL (8.5-10.5); Carbon Dioxide 23 mmol/L (22-29); Chloride 97 mmol/L (98-107); Creatine Phosphokinase 86 U/L (39-308); Globulin 3.9 g/dL (1.3-4.6); Glomerular Filtration Rate 84.2 mL/min (90-130); Glucose 391 mg/dL (65-115); Lactate Dehydrogenase 220 U/L (135-225); Osmolality Calculated 292 mOsm/kg (285-295); Potassium 3.9 mmol/L (3.5-5.1); Sodium 131 mmol/L (136-145); Total Bilirubin 0.6 mg/dL (0.15-1.2); Total Protein 7.5 g/dL (6.6-8.7)
[2022-11-27 11:38] LABS: Erythrocyte Sedimentation Rate 16 mm/hr (0-10)
[2022-11-30 11:34] LABS: Aldolase 18.8 U/L (< OR = 8.1)
[2022-11-30 20:09] LABS: Anti-Double Strand DNA AB 3 IU/mL; Jo-1 Antibody <1.0 NEG AI (<1.0 NEG); SM/RNP Antibodies <1.0 NEG AI (<1.0 NEG); SS-B/LA IGG <1.0 NEG AI (<1.0 NEG); Scleroderma Ab(Scl-70) Ab <1.0 NEG AI (<1.0 NEG); Ss-A/Ro Igg <1.0 NEG AI (<1.0 NEG)
== END 2022-11-27 10:41 | disposition home or self-care (01) ==
PROVIDERS: PCP Family Medicine; Visit Provider Internal Medicine Rheumatology
DX: L40.50 Arthropathic psoriasis, unspecified (principal)
CPT/HCPCS: 36415; 80053; 82085; 82550; 83615; 85025; 85651; 86140; 86225; 86235

== ENCOUNTER → 2022-12-02 09:12 | Outpatient (BNVA) | payer MEDICARE, OTHER, SELFPAY | PROVIDERS: PCP Family Medicine; Visit Provider Family Medicine | DX: Z12.5 Encounter for screening for malignant neoplasm of prostate (principal); I10 Essential (primary) hypertension; R74.01 Elevation of levels of liver transaminase levels; E11.9 Type 2 diabetes mellitus without complications | CPT/HCPCS: 80076; 83036; 86705; 86706; 86709; 86803; 87340; G0103 ==

== ENCOUNTER 2022-12-03 16:45 | Outpatient (CLI) | payer MEDICARE, OTHER, SELFPAY ==
--- NOTE | 2022-12-03 17:00 | CT_ITS ---
WS: [id number] CT ABDOMEN AND PELVIS NONCONTRAST HISTORY: Right sided abdominal pain, Elevated LFT's TECHNIQUE: Imaging performed through the abdomen and pelvis. Coronal and sagittal reformats are submi tted. All CT scans at [facility] use at least one of these dose optimization techniques: auto mated exposure control; mA and/or kV adjustment per patient size (includes targeted exams where dose is matched to clinical indication); or iterative reconstruction. DLP: 1008.32 mGy.cm COMPARISON: 01/13/2022 Lower thorax: Lung bases are clear. Visualized heart is normal. No hiatal hernia. Liver: Enlarged liver with low-attenuation from hepatic steatosis. No bile duct dilatation. Normal po rtal vein. Gallbladder: Nondistended gallbladder with numerous stones filling the gallbladder. No adjacent infla mmation. Cholelithiasis has been previously described. Pancreas: Normal size and attenuation. Normal pancreatic duct. No pancreatitis or mass. Small amount of calcification in the body of the pancreas. No associated mass. Spleen: Normal. Adrenal glands: Normal. No mass. Right kidney: Nonobstructing calcifications in the renal pelvis measuring up to 5 mm. Left kidney: No obstruction. Large inferomedial cyst measuring 7.7 x 6.9 cm. Mild distortion upon the renal pelvis. Nonobstructing renal calcifications with the largest cluster of calcifications in the lower pole measuring 17 mm. Aorta: Mild atherosclerosis abdominal aorta with no aneurysm. No free fluid, intraperitoneal air or significant lymphadenopathy. GI tract: Normal stomach and small bowel. Normal appendix. There are a few scattered diverticula thro ughout the mid to distal colon. No acute diverticulitis. Abdominal wall: Negative. No hernia. Pelvis: Mild prostate enlargement. Osseous structures: Anterior wedging L1 1 x 50% without retropulsion. IMPRESSION: 1. No acute abdominal or pelvic abnormalities. 2. Known cholelithiasis. Numerous gallstones within the gallbladder lumen. No adjacent fluid or manav cholecystic fluid. Recommend surgical evaluation for possible cholecystectomy. 3. Mild hepatomegaly with diffuse hepatic steatosis. 4. Bilateral nonobstructing renal calculi. 5. Normal appendix. 6. No ascites or adenopathy.
== END 2022-12-03 16:46 | disposition home or self-care (01) ==
LOC: RAD 16:46
PROVIDERS: PCP Family Medicine; Visit Provider Family Medicine
DX: R74.01 Elevation of levels of liver transaminase levels (principal); R10.9 Unspecified abdominal pain; K80.20 Calculus of gallbladder without cholecystitis without obstruction; K76.0 Fatty (change of) liver, not elsewhere classified; R16.0 Hepatomegaly, not elsewhere classified; N20.0 Calculus of kidney
CPT/HCPCS: 74176; 80076; 83036; 86705; 86706; 86709; 86803; 87340; G0103

== ENCOUNTER 2022-12-22 14:29 | Outpatient (CLI) | payer MEDICARE, OTHER, SELFPAY ==
--- NOTE | 2022-12-22 14:38 | XR_ITS ---
WS: [email or web address] SCREENING DEXA SCAN [facility] CLINICAL INFORMATION: Osteoporosis COMPARISON: None. FINDINGS: The L1-L4 bone mineral density measures 1.265 g/cm2. This corresponds to a T score score of 0.4 and Z score of 0.1. Left femoral neck bone mineral density measures 1.016 g/cm2. This corresponds to a T score of -0.6 an d Z score of -0.4. Right femoral neck bone mineral density measures 0.949 g/cm2. This corresponds to a T score -1.1of an d Z score of -0.9. Mean femoral neck bone mineral density measures 0.983 g/cm2. This corresponds to a T score of -0.8 an d Z score of -0.6. IMPRESSION: Normal bone mineralization. Patient's FRAX calculated 10 year probability for major osteoporotic fracture is 11.0% and osteoporot ic hip fracture is 2.1%.
== END 2022-12-22 14:30 | disposition home or self-care (01) ==
PROVIDERS: PCP Family Medicine; Visit Provider Internal Medicine Rheumatology
DX: Z13.820 Encounter for screening for osteoporosis (principal); M81.0 Age-related osteoporosis without current pathological fracture; Z79.52 Long term (current) use of systemic steroids
CPT/HCPCS: 77080

== ENCOUNTER 2023-01-04 09:58 | Outpatient (CLI) | payer MEDICARE, OTHER, SELFPAY ==
[2023-01-04 10:59] LABS: Erythrocyte Sedimentation Rate 43 mm/hr (0-10)
[2023-01-04 11:02] LABS: C Reactive Protein 18.5 mg/L (0.0-4.9); Creatine Phosphokinase 110 U/L (39-308)
[2023-01-06 14:54] LABS: Aldolase 12.4 U/L (< OR = 8.1)
== END 2023-01-04 09:59 | disposition home or self-care (01) ==
LOC: LAB 10:00
PROVIDERS: PCP Family Medicine; Visit Provider Family Medicine
DX: L40.50 Arthropathic psoriasis, unspecified (principal); M06.9 Rheumatoid arthritis, unspecified
CPT/HCPCS: 36415; 82085; 82550; 85651; 86140

== ENCOUNTER → 2023-01-12 08:11 | Outpatient (BNVA) | payer MEDICARE, OTHER, SELFPAY | PROVIDERS: PCP Family Medicine; Referring Provider Family Medicine; Visit Provider Surgery | DX: R10.9 Unspecified abdominal pain (principal); K82.9 Disease of gallbladder, unspecified; R74.01 Elevation of levels of liver transaminase levels; K76.0 Fatty (change of) liver, not elsewhere classified | CPT/HCPCS: 99204; 99214 ==

== ENCOUNTER 2023-01-26 08:17 | Outpatient (CLI) | payer MEDICARE, OTHER, SELFPAY ==
--- NOTE | 2023-01-26 08:45 | US_ITS ---
WS: [id number] RIGHT UPPER QUADRANT ULTRASOUND HISTORY: right sided abdominal pain COMPARISON: 02/17/2019 Liver: 20.8 cm in length. Moderately enlarged liver. Diffuse hepatic steatosis. No mass. Portal Vein: Normal hepatopetal flow with monophasic waveform. Gallbladder: Normally distended with numerous stones. CBD: 0.3 cm Pancreas: Obscured. Right kidney: 11.6 cm in length. Normal size and echogenicity. No hydronephrosis or mass. Aorta and IVC: Not visualized. No ascites. IMPRESSION: 1. Technically difficult RIGHT upper quadrant evaluation due to body habitus. 2. Cholelithiasis without acute cholecystitis. 3. Moderately enlarged liver with hepatic steatosis.
== END 2023-01-26 08:18 | disposition home or self-care (01) ==
LOC: RAD 08:17
PROVIDERS: PCP Family Medicine; Visit Provider Surgery
DX: K80.20 Calculus of gallbladder without cholecystitis without obstruction (principal); R16.0 Hepatomegaly, not elsewhere classified; K76.0 Fatty (change of) liver, not elsewhere classified; R10.9 Unspecified abdominal pain
CPT/HCPCS: 76705

== ENCOUNTER → 2023-01-29 12:33 | Outpatient (BNVA) | payer MEDICARE, OTHER, SELFPAY | PROVIDERS: PCP Family Medicine; Visit Provider Surgery | DX: Z09 Encounter for follow-up examination after completed treatment for conditions other than malignant neoplasm | CPT/HCPCS: 99212 ==

== ENCOUNTER → 2023-02-03 09:21 | Outpatient (BNVA) | payer MEDICARE, OTHER, SELFPAY | PROVIDERS: PCP Family Medicine; Visit Provider Family Medicine | DX: Z01.818 Encounter for other preprocedural examination (principal) | CPT/HCPCS: 80053; 81000; 83036; 85025 ==

== ENCOUNTER 2023-03-02 11:07 | Outpatient (CLI) | payer MEDICARE, OTHER, SELFPAY ==
[2023-03-02 11:44] LABS: Basophils % 0.5 %; Eosinophils # 0.1 10^3/uL (0.0-0.8); Eosinophils % 1.7 %; Hematocrit 53.4 % (37-53); Lymphocytes # 1.5 10^3/uL (0.8-4.8); Lymphocytes % 18.8 %; Mean Corpuscular HGB Conc 33.5 g/dL (30-55); Mean Corpuscular Hemoglobin 30.1 pg (27-33); Mean Corpuscular Volume 89.7 fl (82-101); Mean Platelet Volume 9.6 fL (7.4-10.4); Monocytes # 0.4 10^3/uL (0.2-0.9); Neutrophils # 5.79 10^3/uL (1.8-7.7); Neutrophils % 73.5 %; Nucleated Red Blood Cells % 0 %; Platelet Count 240 10^3/cmm (157-399); Red Blood Count 5.95 10^6/uL (3.85-5.65); Red Cell Distribution Width 14.5 % (12.1-15.1); White Blood Count 7.87 10^3/uL (3.29-11.43)
[2023-03-02 11:49] LABS: Erythrocyte Sedimentation Rate 35 mm/hr (0-10)
[2023-03-02 12:03] LABS: Alanine Aminotransferase 61 U/L (0-41); Albumin Level 3.8 g/dL (3.5-5.2); Alkaline Phosphatase 109 U/L (40-130); Aspartate Amino Transferase 40 U/L (0-40); Globulin 4.1 g/dL (1.3-4.6); Total Bilirubin 0.8 mg/dL (0.15-1.2); Total Protein 7.9 g/dL (6.6-8.7)
[2023-03-02 13:32] LABS: Alanine Aminotransferase 58 U/L (0-41); Albumin Level 3.8 g/dL (3.5-5.2); Alkaline Phosphatase 112 U/L (40-130); Anion Gap 16.2 (5-19); Aspartate Amino Transferase 42 U/L (0-40); Blood Urea Nitrogen 13 mg/dL (8-23); C Reactive Protein 22.1 mg/L (0.0-4.9); Calcium 9.8 mg/dL (8.5-10.5); Carbon Dioxide 23 mmol/L (22-29); Chloride 101 mmol/L (98-107); Creatine Phosphokinase 80 U/L (39-308); Globulin 4.1 g/dL (1.3-4.6); Glomerular Filtration Rate 96.1 mL/min (90-130); Glucose 204 mg/dL (65-115); Osmolality Calculated 288 mOsm/kg (285-295); Potassium 4.2 mmol/L (3.5-5.1); Sodium 136 mmol/L (136-145); Total Bilirubin 0.7 mg/dL (0.15-1.2); Total Protein 7.9 g/dL (6.6-8.7)
[2023-03-03 13:30] LABS: Aldolase 7.9 U/L (< OR = 8.1)
[2023-03-16 14:05] LABS: Myositis EJ AB <11; Myositis JO-1 AB <11; Myositis MDA-5 AB <11; Myositis MI-2 Alpha AB <11; Myositis MI-2 Beta AB <11; Myositis NXP-2AB <11; Myositis OJ AB <11; Myositis PL-12 AB <11; Myositis PL-7 AB <11; Myositis SRP AB <11; Myositis TIF-1y AB <11
== END 2023-03-02 11:08 | disposition home or self-care (01) ==
PROVIDERS: Absent Provider Surgery; PCP Family Medicine; Visit Provider Internal Medicine Rheumatology
DX: K76.0 Fatty (change of) liver, not elsewhere classified (principal); R10.9 Unspecified abdominal pain; K80.20 Calculus of gallbladder without cholecystitis without obstruction; G72.9 Myopathy, unspecified; Z51.81 Encounter for therapeutic drug level monitoring; Z79.52 Long term (current) use of systemic steroids
CPT/HCPCS: 36415; 80053; 80076; 82085; 82550; 84182; 85025; 85651; 86140; 86235

== ENCOUNTER → 2023-04-30 11:07 | Outpatient (BNVA) | payer MEDICARE, OTHER, SELFPAY | PROVIDERS: PCP Family Medicine; Visit Provider Nurse Practitioner Family | DX: I10 Essential (primary) hypertension (principal); I25.10 Atherosclerotic heart disease of native coronary artery without angina pectoris | CPT/HCPCS: 99214 ==

== ENCOUNTER 2023-07-20 13:24 | Outpatient (CLI) | payer MEDICARE, OTHER, SELFPAY ==
[2023-07-20 15:10] LABS: Basophils # 0.1 10^3/uL (0.0-0.1); Basophils % 0.5 %; Eosinophils # 0.1 10^3/uL (0.0-0.8); Eosinophils % 0.8 %; Lymphocytes # 1.9 10^3/uL (0.8-4.8); Lymphocytes % 19.6 %; Mean Corpuscular HGB Conc 33.5 g/dL (30-55); Mean Corpuscular Hemoglobin 30.2 pg (27-33); Mean Corpuscular Volume 90.3 fl (82-101); Mean Platelet Volume 9.7 fL (7.4-10.4); Monocytes # 0.6 10^3/uL (0.2-0.9); Monocytes % 6.2 %; Neutrophils # 6.82 10^3/uL (1.8-7.7); Neutrophils % 72.3 %; Nucleated Red Blood Cells % 0 %; Platelet Count 273 10^3/cmm (157-399); Red Blood Count 5.76 10^6/uL (3.85-5.65); White Blood Count 9.45 10^3/uL (3.29-11.43)
[2023-07-20 15:12] LABS: Erythrocyte Sedimentation Rate 47 mm/hr (0-10)
[2023-07-20 15:27] LABS: Alanine Aminotransferase 40 U/L (0-41); Albumin Level 3.8 g/dL (3.5-5.2); Alkaline Phosphatase 110 U/L (40-130); Anion Gap 17.1 (5-19); Aspartate Amino Transferase 23 U/L (0-40); Blood Urea Nitrogen 19 mg/dL (8-23); C Reactive Protein 23.8 mg/L (0.0-4.9); Calcium 9.7 mg/dL (8.5-10.5); Carbon Dioxide 25 mmol/L (22-29); Chloride 98 mmol/L (98-107); Creatine Phosphokinase 126 U/L (39-308); Globulin 3.6 g/dL (1.3-4.6); Glomerular Filtration Rate 96.1 mL/min (90-130); Glucose 232 mg/dL (65-115); Osmolality Calculated 292 mOsm/kg (285-295); Potassium 4.1 mmol/L (3.5-5.1); Sodium 136 mmol/L (136-145); Total Bilirubin 0.5 mg/dL (0.15-1.2); Total Protein 7.4 g/dL (6.6-8.7)
[2023-07-21 14:25] LABS: Aldolase 8.6 U/L (< OR = 8.1)
== END 2023-07-20 13:25 | disposition home or self-care (01) ==
PROVIDERS: PCP Family Medicine; Visit Provider Internal Medicine Rheumatology
DX: L40.50 Arthropathic psoriasis, unspecified (principal); Z51.81 Encounter for therapeutic drug level monitoring; G72.9 Myopathy, unspecified
CPT/HCPCS: 36415; 80053; 82085; 82550; 85025; 85651; 86140

== ENCOUNTER 2023-09-08 08:00 | Outpatient (CLI) | payer MEDICARE, OTHER, SELFPAY ==
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
== END 2023-09-08 08:01 | disposition home or self-care (01) ==
PROVIDERS: PCP Family Medicine; Visit Provider Family Medicine
DX: S06.9X9A Unspecified intracranial injury with loss of consciousness of unspecified duration, initial encounter (principal); V89.2XXA Person injured in unspecified motor-vehicle accident, traffic, initial encounter; G31.9 Degenerative disease of nervous system, unspecified
CPT/HCPCS: 70450

== ENCOUNTER → 2023-11-09 13:42 | Outpatient (BNVA) | payer MEDICARE, OTHER, SELFPAY | PROVIDERS: PCP Family Medicine; Visit Provider Family Medicine | DX: E11.9 Type 2 diabetes mellitus without complications (principal); I10 Essential (primary) hypertension; M06.9 Rheumatoid arthritis, unspecified; R74.01 Elevation of levels of liver transaminase levels | CPT/HCPCS: 80053; 80061; 82043; 82306; 82607; 83036; 83735; 84443; 85025; G0103 ==

== ENCOUNTER → 2023-11-10 15:12 | Outpatient (BNVA) | payer MEDICARE, OTHER, SELFPAY | PROVIDERS: PCP Family Medicine; Visit Provider Internal Medicine | DX: R07.9 Chest pain, unspecified (principal); R94.39 Abnormal result of other cardiovascular function study; R06.09 Other forms of dyspnea; I10 Essential (primary) hypertension; E78.5 Hyperlipidemia, unspecified; R06.02 Shortness of breath; Z72.0 Tobacco use | CPT/HCPCS: 99214 ==

== ENCOUNTER 2023-11-26 06:26 | Outpatient (CLI) | payer MEDICARE, OTHER, SELFPAY ==
[2023-11-26 06:32] VITALS: BMI 34.2
--- NOTE | 2023-11-26 06:36 | ECG_ITS ---
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
--- NOTE | 2023-11-26 06:36 | NMCV_ITS ---
NM sol perf SPECT r/s* [id number] Federico Menjivar Age: 67 Gender: M : 1955 Exam Date: 11/26/2023 07:54 Ordering Phys: Avinash Anderson M.D ([email or web address]) Technologist: MELISSA Morales Exam Location: [facility] Indications: CP STRESS TEST Please see separate stress test report in 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 Images obtained in supine and prone position. SPECT RESULTS Technical Quality: Good Raw Data Analysis: Normal Image Corrections: No attenuation or motion correction applied Summed Stress Score: 0 Summed Rest Score: 4 Summed Difference Score: 0 PERFUSION FINDINGS SPECT images demonstrate homogeneous tracer distribution throughout the myocardium. FUNCTIONAL RESULTS (calculated via Gated SPECT) Stress Image LV EF (%): 74 Stress EDV (mL):87 TID: 1.11 Stress ESV (mL):23 FUNCTIONAL FINDINGS: There is normal left ventricular systolic function. IMPRESSIONS 1. Normal myocardial perfusion imaging with no evidence of ischemia 2. LV systolic function is normal Avinash Anderson MD (Electronically Signed) Final Date: 26 November 2023 11:29 S
[2023-11-26] MEDS: regadenoson 0.4 Mg/5 ml Syringe IVP (08:32)
[2023-11-26 08:57] VITALS: BP 158/64; PULSE 62
== END 2023-11-26 06:27 | disposition home or self-care (01) ==
PROVIDERS: PCP Family Medicine; Visit Provider Internal Medicine
DX: R07.9 Chest pain, unspecified (principal); R06.02 Shortness of breath
CPT/HCPCS: 36415; 78452; 93017; 96374; A9500; J2785

== ENCOUNTER → 2023-12-21 10:21 | Outpatient (BNVA) | payer MEDICARE, OTHER, SELFPAY | PROVIDERS: PCP Family Medicine; Visit Provider Podiatrist Foot & Ankle Surgery | DX: E11.9 Type 2 diabetes mellitus without complications (principal); R60.9 Edema, unspecified; L60.3 Nail dystrophy; B35.3 Tinea pedis; M19.079 Primary osteoarthritis, unspecified ankle and foot; I73.9 Peripheral vascular disease, unspecified | CPT/HCPCS: 73610; 73630; 99203 ==

== ENCOUNTER → 2024-01-25 13:30 | Outpatient (BNVA) | payer MEDICARE, OTHER, SELFPAY | PROVIDERS: PCP Family Medicine; Visit Provider Family Medicine | DX: Z12.5 Encounter for screening for malignant neoplasm of prostate (principal); M10.9 Gout, unspecified; R06.09 Other forms of dyspnea; E78.5 Hyperlipidemia, unspecified; E11.9 Type 2 diabetes mellitus without complications; L40.50 Arthropathic psoriasis, unspecified; I10 Essential (primary) hypertension; E55.9 Vitamin D deficiency, unspecified | CPT/HCPCS: 80053; 80061; 82306; 82728; 82746; 83036; 84443; 84550; 85025; 85651; 86140; G0103 ==

== ENCOUNTER → 2024-02-02 11:41 | Outpatient (BNVA) | payer MEDICARE, OTHER, SELFPAY | PROVIDERS: PCP Family Medicine; Visit Provider Podiatrist Foot & Ankle Surgery | DX: M79.671 Pain in right foot (principal); M10.9 Gout, unspecified; E11.69 Type 2 diabetes mellitus with other specified complication; R60.9 Edema, unspecified; L60.3 Nail dystrophy; B35.3 Tinea pedis; M19.071 Primary osteoarthritis, right ankle and foot; I73.9 Peripheral vascular disease, unspecified; M79.89 Other specified soft tissue disorders | CPT/HCPCS: 20605; 73630; 80503; 89050 ==

== ENCOUNTER → 2024-03-20 08:57 | Outpatient (BNVA) | payer MEDICARE, OTHER, SELFPAY | PROVIDERS: PCP Family Medicine; Referring Provider Family Medicine; Visit Provider Nurse Practitioner Family | DX: B35.3 Tinea pedis (principal); B35.1 Tinea unguium; L57.8 Other skin changes due to chronic exposure to nonionizing radiation; L81.4 Other melanin hyperpigmentation; D22.39 Melanocytic nevi of other parts of face; L82.1 Other seborrheic keratosis; L91.8 Other hypertrophic disorders of the skin; L82.0 Inflamed seborrheic keratosis; R20.8 Other disturbances of skin sensation; L53.8 Other specified erythematous conditions; L57.0 Actinic keratosis | CPT/HCPCS: 17000; 17110; 99204 ==

== ENCOUNTER → 2024-05-26 10:26 | Outpatient (BNVA) | payer MEDICARE, OTHER, SELFPAY | PROVIDERS: PCP Family Medicine; Visit Provider Nurse Practitioner Family | DX: B35.3 Tinea pedis (principal); B35.1 Tinea unguium; L57.8 Other skin changes due to chronic exposure to nonionizing radiation; L81.4 Other melanin hyperpigmentation | CPT/HCPCS: 99214 ==

== ENCOUNTER → 2024-06-07 09:50 | Outpatient (BNVA) | payer MEDICARE, OTHER, SELFPAY | PROVIDERS: PCP Family Medicine; Visit Provider Family Medicine | DX: I10 Essential (primary) hypertension (principal); E11.9 Type 2 diabetes mellitus without complications | CPT/HCPCS: 80048; 82607; 83036 ==

== ENCOUNTER 2024-06-15 07:57 | Oncology outpatient (recurring) (ONCR) | payer MEDICARE, OTHER, SELFPAY ==
[2024-06-15] MEDS: sodium chloride 0.9% 250 ML 75 ML IV (08:42)
[2024-06-15] MEDS: diphenhydrAMINE 50 mg/mL SDV 1mL 25 MG IVP (08:43)
[2024-06-15] MEDS: SODIUM CHLORIDE 0.9% IV (09:20)
[2024-06-15] MEDS: GOLIMUMAB IV (09:20)
[2024-06-15 10:09] VITALS: BP 134/82; PULSE 69; RESP 17; TEMP 36.6; O2SAT 94
== END 2024-06-15 23:59 | disposition home or self-care (01) ==
PROVIDERS: PCP Family Medicine; Visit Provider Internal Medicine Rheumatology
DX: M06.9 Rheumatoid arthritis, unspecified (principal); Z79.899 Other long term (current) drug therapy
CPT/HCPCS: 96375; 96413; A4222; J1200; J1602; J7050

== ENCOUNTER → 2024-06-20 09:47 | Outpatient (BNVA) | payer MEDICARE, OTHER, SELFPAY | PROVIDERS: PCP Family Medicine; Visit Provider Podiatrist Foot & Ankle Surgery | DX: E11.69 Type 2 diabetes mellitus with other specified complication (principal); L60.3 Nail dystrophy; R60.9 Edema, unspecified; B35.3 Tinea pedis; M19.079 Primary osteoarthritis, unspecified ankle and foot; I73.9 Peripheral vascular disease, unspecified; Z79.4 Long term (current) use of insulin | CPT/HCPCS: 11721; 99213 ==

== ENCOUNTER 2024-07-26 09:49 | Oncology outpatient (recurring) (ONCR) | payer MEDICARE, OTHER, SELFPAY ==
[2024-07-26] MEDS: diphenhydrAMINE 50 mg/mL SDV 1mL 25 MG IVP (10:42)
[2024-07-26] MEDS: sodium chloride 0.9% 250 ML 999 ML IV (10:43)
[2024-07-26] MEDS: SODIUM CHLORIDE 0.9% IV (11:13)
[2024-07-26] MEDS: GOLIMUMAB IV (11:13)
[2024-07-26 11:57] VITALS: BP 136/88; PULSE 77; O2SAT 93
== END 2024-07-26 23:59 | disposition home or self-care (01) ==
PROVIDERS: PCP Family Medicine; Visit Provider Internal Medicine Rheumatology
DX: M06.9 Rheumatoid arthritis, unspecified (principal); Z79.899 Other long term (current) drug therapy
CPT/HCPCS: 96375; 96413; J1200; J1602; J7050

== ENCOUNTER → 2024-08-22 10:03 | Outpatient (BNVA) | payer MEDICARE, OTHER, SELFPAY | PROVIDERS: PCP Family Medicine; Visit Provider Podiatrist Foot & Ankle Surgery | DX: E11.42 Type 2 diabetes mellitus with diabetic polyneuropathy (principal); L60.3 Nail dystrophy; I73.9 Peripheral vascular disease, unspecified; G62.9 Polyneuropathy, unspecified; Z79.4 Long term (current) use of insulin | CPT/HCPCS: 11721 ==

== ENCOUNTER → 2024-08-30 15:41 | Outpatient (BNVA) | payer MEDICARE, OTHER, SELFPAY | PROVIDERS: PCP Family Medicine; Visit Provider Family Medicine | DX: E11.9 Type 2 diabetes mellitus without complications (principal); L40.50 Arthropathic psoriasis, unspecified; R06.02 Shortness of breath; G62.9 Polyneuropathy, unspecified; M05.79 Rheumatoid arthritis with rheumatoid factor of multiple sites without organ or systems involvement; Z79.4 Long term (current) use of insulin | CPT/HCPCS: 80053; 82085; 82550; 85025; 85651; 86140 ==

== ENCOUNTER → 2024-09-29 09:55 | Outpatient (BNVA) | payer MEDICARE, OTHER, SELFPAY | PROVIDERS: PCP Family Medicine; Visit Provider Nurse Practitioner Family | DX: L57.8 Other skin changes due to chronic exposure to nonionizing radiation (principal); L81.4 Other melanin hyperpigmentation; B35.3 Tinea pedis; L91.8 Other hypertrophic disorders of the skin; Z78.9 Other specified health status; L53.8 Other specified erythematous conditions; R20.8 Other disturbances of skin sensation; L29.89 Other pruritus | CPT/HCPCS: 17110; 99213 ==

== ENCOUNTER → 2024-10-11 13:40 | Outpatient (BNVA) | payer MEDICARE, OTHER, SELFPAY | PROVIDERS: PCP Family Medicine; Visit Provider Family Medicine | DX: E11.65 Type 2 diabetes mellitus with hyperglycemia (principal); Z79.4 Long term (current) use of insulin; L40.50 Arthropathic psoriasis, unspecified | CPT/HCPCS: 80053; 82085; 83036; 85651; 86140 ==

== ENCOUNTER → 2024-11-01 09:16 | Outpatient (BNVA) | payer MEDICARE, OTHER, SELFPAY | PROVIDERS: PCP Family Medicine; Visit Provider Podiatrist Foot & Ankle Surgery | DX: E11.9 Type 2 diabetes mellitus without complications (principal); Z79.4 Long term (current) use of insulin; E78.2 Mixed hyperlipidemia; L60.3 Nail dystrophy; I73.9 Peripheral vascular disease, unspecified; G62.9 Polyneuropathy, unspecified; E11.42 Type 2 diabetes mellitus with diabetic polyneuropathy | CPT/HCPCS: 11721; 99204 ==

== ENCOUNTER → 2025-01-10 09:24 | Outpatient (BNVA) | payer MEDICARE, OTHER, SELFPAY | PROVIDERS: PCP Family Medicine; Visit Provider Podiatrist Foot & Ankle Surgery | DX: E11.8 Type 2 diabetes mellitus with unspecified complications (principal); E11.42 Type 2 diabetes mellitus with diabetic polyneuropathy; L60.3 Nail dystrophy; I73.9 Peripheral vascular disease, unspecified; G62.9 Polyneuropathy, unspecified; Z79.4 Long term (current) use of insulin; E55.9 Vitamin D deficiency, unspecified; I10 Essential (primary) hypertension; M54.42 Lumbago with sciatica, left side; R79.89 Other specified abnormal findings of blood chemistry; W19.XXXA Unspecified fall, initial encounter; Z78.9 Other specified health status | CPT/HCPCS: 11721; 80053; 82306; 82607; 83036 ==

== ENCOUNTER 2025-01-11 09:57 | Outpatient (CLI) | payer MEDICARE, OTHER, SELFPAY ==
--- NOTE | 2025-01-11 10:05 | XR_ITS ---
WS: [email or web address] XR thoracic spine 2V [id number] REASON FOR EXAM: W19.XXXA - Unspecified fall, initial encounter FINDINGS: Mild levoscoliosis. No significant kyphosis. No significant compression deformity or focal lesion of the thoracic vertebrae. Compression fracture of L1 as noted on the lumbar spine examination. Moderate degenerative spondylosis in the mid and lower thoracic spine. XR/XR thoracic spine 2V [id number] IMPRESSION: Degenerative spondylosis without acute abnormality.
--- NOTE | 2025-01-11 10:05 | XR_ITS ---
WS: [email or web address] XR lumbar spine 2-3V* [id number] REASON FOR EXAM: W19.XXXA - Unspecified fall, initial encounter FINDINGS: Minimal rotatory levoscoliosis. Compression fracture involving the anterior superior endplate and body of L1. Findings are compatible with acute or subacute compression fracture. Remaining vertebral bodies are without significant abnormality. Mild narrowing of the L5-S1 disc space. The remainder of the disc spaces are intact and well preserved. Multiple bilateral intrarenal calculi from 6 to 13 mm in maximum dimension. XR/XR lumbar spine 2-3V* [id number] IMPRESSION: Compression fracture of L1 as above. Bilateral intrarenal calculi.
== END 2025-01-11 09:58 | disposition home or self-care (01) ==
LOC: RAD 09:59
PROVIDERS: PCP Family Medicine; Visit Provider Family Medicine
DX: M47.894 Other spondylosis, thoracic region (principal); W19.XXXA Unspecified fall, initial encounter; M41.84 Other forms of scoliosis, thoracic region; M48.56XA Collapsed vertebra, not elsewhere classified, lumbar region, initial encounter for fracture; N20.0 Calculus of kidney; M51.379 Other intervertebral disc degeneration, lumbosacral region without mention of lumbar back pain or lower extremity pain
CPT/HCPCS: 72070; 72100